=== PATIENT | female | born 1960 | race Caucasian/White ===

== ENCOUNTER 2016-12-26 11:41 | Emergency (ER) | payer MEDICARE ==
[~2016-12-26] VITALS: Ht 175.3 cm; Wt 76.5 kg
[~2016-12-26 11:41] MED LIST: AMLO10TA2 PO; AMLO10TA4 PO; AMLO5TAB2 PO; BACL-19 PO; BUPR100T6 PO; CEFT2FRO2 IV; CIPR250T27 PO; CIPR500T87 PO; CITA10TA4 PO; CYCL-259 PO; DOCU-30 PO; ESTR0.5T PO; GABA300C10 PO; GEMF600T3 PO; HYDR-3240 PO; HYDR-3307 PO; LISI-167 PO; LOSA25TA2 PO; LOSA25TA5 PO; POLY17PO5 PO; RANI150C PO; SEVE800T8 PO; SIMV20TA3 PO; SIMV40TA PO; VENL75CA6 PO
[2016-12-26] MEDS ORDERED: HYDROmorphone 1 MG/ML, 1ML IM ONE (13:30)
[2016-12-26] MEDS ORDERED: HYDROmorphone 1 MG/ML, 1ML IM PRN (14:30)
[2016-12-26] MEDS ORDERED: HYDROmorphone 1 MG/ML, 1ML ONE (14:30)
[2016-12-26 14:38] VITALS: BP 120/57
== END 2016-12-26 14:56 | disposition home or self-care (01) ==
LOC: ED 12:50
DX: M46.1 Sacroiliitis, not elsewhere classified (principal); G89.29 Other chronic pain; M54.5 Low back pain; Z86.73 Personal history of transient ischemic attack (TIA), and cerebral infarction without residual deficits; Z87.891 Personal history of nicotine dependence
CPT/HCPCS: 72110; 72202; 72220; 96372; 99284; J1170

== ENCOUNTER 2017-07-08 18:24 | Emergency (ER) | payer MEDICARE, OTHER ==
[~2017-07-08] VITALS: Ht 175.3 cm; Wt 79.4 kg
[~2017-07-08 18:24] MED LIST changes: +DOCU-131 PO; -DOCU-30 PO
[2017-07-08] MEDS ORDERED: METOCLOPRAMIDE 5 MG/ML, 2ML IM ONE (19:00)
[2017-07-08] MEDS ORDERED: DIPHENHYDRAMINE 50 MG/ML, 1ML IM ONE (19:00)
[2017-07-08] MEDS ORDERED: DIPHENHYDRAMINE 50 MG/ML, 1ML ONE (19:37)
[2017-07-08] MEDS ORDERED: METOCLOPRAMIDE 5 MG/ML, 2ML ONE (19:37)
[2017-07-08 21:36] LABS: GLUCOSE, CSF 54 mg/dL (40-80); TOTAL PROTEIN,CSF 81 mg/dL (15-45)
[2017-07-08 21:45] LABS: BASOPHILS # (AUTO) 0.07 x10^3/uL (0-0.1); BASOPHILS % (AUTO) 1 % (0-1); EOSINOPHILS # (AUTO) 0.23 x10^3/uL (0-0.4); EOSINOPHILS % (AUTO) 3 % (1-7); LYMPHOCYTES # (AUTO) 0.87 x10^3/uL (1-3.4); LYMPHOCYTES % (AUTO) 12 % (22-44); MD NO; MEAN CORPUSCULAR HEMOGLOBIN 34.3 pg (27.0-34.8); MEAN CORPUSCULAR HGB CONC 33.8 g/dL (32.4-35.8); MEAN CORPUSCULAR VOLUME 101.4 fL (80-100); MEAN PLATELET VOLUME 7.6 fL (7.4-10.4); MONOCYTES # (AUTO) 0.94 x10^3/uL (0.2-0.8); MONOCYTES % (AUTO) 13 % (2-9); NEUTROPHILS # (AUTO) 4.92 x10^3/uL (1.8-6.8); NEUTROPHILS % (AUTO) 70 % (42-75); PLATELET COUNT 225 x10^3/uL (130-400); RED BLOOD COUNT 3.79 x10^6/uL (3.82-5.3); RED CELL DISTRIBUTION WIDTH 12.9 % (9.6-15.2)
[2017-07-08 21:53] LABS: ALBUMIN 3.2 g/dL (3.4-5.0); ANION GAP 9 mmol/L (5-15); CALCIUM 9.7 mg/dL (8.5-10.1); CHLORIDE 97 mmol/L (98-107); CREATININE 4.65 mg/dL (0.55-1.02)
[2017-07-08] MEDS ORDERED: BUTALBIT/ACETAMIN/CAFF/CODEINE CAPSULE ONE (22:12)
[2017-07-08 22:29] VITALS: BP 119/67
[2017-07-08] MEDS ORDERED: BUTALB/APAP/CAFFEINE 50MG/325MG/40MG PO ONE (22:30)
== END 2017-07-08 23:07 | disposition home or self-care (01) ==
LOC: ED 21:20
DX: G44.219 Episodic tension-type headache, not intractable (principal); E78.5 Hyperlipidemia, unspecified; E87.1 Hypo-osmolality and hyponatremia; E87.5 Hyperkalemia; J44.9 Chronic obstructive pulmonary disease, unspecified; I12.0 Hypertensive chronic kidney disease with stage 5 chronic kidney disease or end stage renal disease; N18.6 End stage renal disease; I50.9 Heart failure, unspecified; Z90.710 Acquired absence of both cervix and uterus; Z90.49 Acquired absence of other specified parts of digestive tract; Z99.2 Dependence on renal dialysis; Z98.890 Other specified postprocedural states
CPT/HCPCS: 36415; 62270; 70450; 80048; 82040; 82945; 84157; 85025; 87070; 87205; 89051; 96372; 99285; J1200; J2765

== ENCOUNTER 2017-08-11 10:24 | Emergency (ER) | payer MEDICARE, OTHER ==
[~2017-08-11] VITALS: Ht 172.7 cm; Wt 84.0 kg
[2017-08-11 10:34] VITALS: BP 151/88
== END 2017-08-11 12:23 | disposition home or self-care (01) ==
LOC: ED 12:21
DX: M25.462 Effusion, left knee (principal); S83.412A Sprain of medial collateral ligament of left knee, initial encounter; W18.30XA Fall on same level, unspecified, initial encounter; Y93.89 Activity, other specified; Y99.8 Other external cause status; Y92.89 Other specified places as the place of occurrence of the external cause
CPT/HCPCS: 29505; 99284

== ENCOUNTER 2017-11-07 12:20 | Emergency (ER) | payer MEDICARE, OTHER ==
[~2017-11-07] VITALS: Ht 175.3 cm; Wt 81.2 kg
[2017-11-07 12:22] VITALS: BP 122/78
[2017-11-07] MEDS ORDERED: DIAZEPAM 5 MG TABLET ONE (13:09)
[2017-11-07] MEDS ORDERED: HYDROmorphone 1 MG/ML, 1ML ONE (13:09)
[2017-11-07] MEDS ORDERED: ONDANSETRON ODT 4 MG ONE (13:09)
[2017-11-07] MEDS ORDERED: ONDANSETRON ODT 4 MG PO ONE (13:30)
[2017-11-07] MEDS ORDERED: DIAZEPAM 5 MG TABLET PO ONE (13:30)
[2017-11-07] MEDS ORDERED: HYDROmorphone 1 MG/ML, 1ML IM ONE (13:30)
== END 2017-11-07 14:30 | disposition home or self-care (01) ==
LOC: ED 14:15
DX: M54.5 Low back pain (principal); E78.5 Hyperlipidemia, unspecified; I12.0 Hypertensive chronic kidney disease with stage 5 chronic kidney disease or end stage renal disease; J44.9 Chronic obstructive pulmonary disease, unspecified; N18.6 End stage renal disease; Z99.2 Dependence on renal dialysis; Z90.49 Acquired absence of other specified parts of digestive tract; F32.9 Major depressive disorder, single episode, unspecified
CPT/HCPCS: 96372; 99283; J1170; Q0162

== ENCOUNTER → 2017-12-09 | Outpatient (CLI) | payer MEDICARE, OTHER | END | disposition home or self-care (01) | LOC: CFH 13:01 | PROVIDERS: ATTEND Anesthesiology | DX: M41.86 Other forms of scoliosis, lumbar region (principal); M51.36 Other intervertebral disc degeneration, lumbar region; M48.07 Spinal stenosis, lumbosacral region | CPT/HCPCS: 72131 ==

== ENCOUNTER → 2018-03-04 | Outpatient (CLI) | payer MEDICARE, OTHER ==
[~2018-03-04] MED LIST changes: -AMLO10TA2 PO; +AMLO10TA6 PO; -AMLO5TAB2 PO; +AMLO5TAB7 PO; -GEMF600T3 PO; +GEMF600T4 PO; -LOSA25TA5 PO; +LOSA25TA6 PO
== END | disposition home or self-care (01) ==
LOC: RAD 08:19
PROVIDERS: ATTEND Internal Medicine
DX: R11.14 Bilious vomiting (principal)
CPT/HCPCS: 74241

== ENCOUNTER 2018-05-10 10:08 | Emergency (ER) | payer MEDICARE, OTHER ==
[~2018-05-10] VITALS: Ht 175.3 cm; Wt 83.5 kg
[2018-05-10 10:54] LABS: MEAN CORPUSCULAR HEMOGLOBIN 29.7 pg (27.0-34.8); MEAN CORPUSCULAR HGB CONC 32.4 g/dL (32.4-35.8); MEAN CORPUSCULAR VOLUME 91.7 fL (80-100); MEAN PLATELET VOLUME 7.6 fL (7.4-10.4); PLATELET COUNT 166 x10^3/uL (130-400); RED BLOOD COUNT 4.19 x10^6/uL (3.82-5.3); RED CELL DISTRIBUTION WIDTH 15.6 % (9.6-15.2)
[2018-05-10 11:07] LABS: ALBUMIN 3.2 g/dL (3.4-5.0); ANION GAP 15 mmol/L (5-15); CALCIUM 9.8 mg/dL (8.5-10.1); CHLORIDE 96 mmol/L (98-107)
[2018-05-10 11:11] LABS: ALANINE AMINOTRANSFERASE 18 U/L (12-78); ALKALINE PHOSPHATASE 94 U/L (45-117); BILIRUBIN,TOTAL 0.5 mg/dL (0.2-1.0); TOTAL PROTEIN 6.9 g/dL (6.4-8.2)
[2018-05-10 11:34] LABS: BASOPHILS # (AUTO) 0.01 x10^3/uL (0-0.1); BASOPHILS % (AUTO) 0 % (0-1); EOSINOPHILS % (AUTO) 0 % (1-7); LYMPHOCYTES # (AUTO) 0.31 x10^3/uL (1-3.4); LYMPHOCYTES % (AUTO) 4 % (22-44); MD SCAN; MONOCYTES # (AUTO) 0.06 x10^3/uL (0.2-0.8); MONOCYTES % (AUTO) 1 % (2-9); NEUTROPHILS # (AUTO) 8.16 x10^3/uL (1.8-6.8); NEUTROPHILS % (AUTO) 96 % (42-75)
[2018-05-10 12:05] VITALS: BP 112/60
== END 2018-05-10 12:19 | disposition home or self-care (01) ==
LOC: ED 11:36
DX: R60.0 Localized edema (principal); I12.0 Hypertensive chronic kidney disease with stage 5 chronic kidney disease or end stage renal disease; N18.6 End stage renal disease; Z99.2 Dependence on renal dialysis; I50.9 Heart failure, unspecified; J44.9 Chronic obstructive pulmonary disease, unspecified; F32.9 Major depressive disorder, single episode, unspecified; Z90.49 Acquired absence of other specified parts of digestive tract; E78.5 Hyperlipidemia, unspecified; Z86.73 Personal history of transient ischemic attack (TIA), and cerebral infarction without residual deficits; Z90.710 Acquired absence of both cervix and uterus
CPT/HCPCS: 36415; 80053; 85025; 93005; 99284

== ENCOUNTER 2018-05-17 17:03 | Emergency (ER) | payer MEDICARE, OTHER ==
[~2018-05-17] VITALS: Ht 175.3 cm; Wt 86.3 kg
[~2018-05-17 17:03] MED LIST changes: -TIZA4TAB PO; -VIT1TABL59 PO
[2018-05-17] MEDS ORDERED: VIT1TABL59 PO (17:38)
[2018-05-17] MEDS ORDERED: TIZA4TAB PO (17:38)
[2018-05-17 18:00] LABS: MEAN CORPUSCULAR HEMOGLOBIN 30.7 pg (27.0-34.8); MEAN CORPUSCULAR HGB CONC 33.6 g/dL (32.4-35.8); MEAN CORPUSCULAR VOLUME 91.3 fL (80-100); MEAN PLATELET VOLUME 8.1 fL (7.4-10.4); PLATELET COUNT 190 x10^3/uL (130-400); RED BLOOD COUNT 4.08 x10^6/uL (3.82-5.3); RED CELL DISTRIBUTION WIDTH 15.5 % (9.6-15.2)
[2018-05-17 18:01] LABS: MD YES
[2018-05-17 18:07] LABS: ANION GAP 18 mmol/L (5-15); CALCIUM 8.7 mg/dL (8.5-10.1); CHLORIDE 91 mmol/L (98-107)
[2018-05-17] MEDS ORDERED: HYDROcodone/APAP 10/325 MG TABLET ONE (18:16)
[2018-05-17 18:24] LABS: BAND#(MANUAL) 0.28 x10^3/uL; BANDS%(MANUAL) 3 % (0-7); LYMPH#(MANUAL) 0.19 x10^3/uL (1-3.4); LYMPHS% (MANUAL) 2 % (22-44); MONOS#(MANUAL) 0.09 x10^3/uL (0.3-2.7); MONOS% (MANUAL) 1 % (2-9); SEG#(MANUAL) 8.84 x10^3/uL (1.8-6.8); SEGS% (MANUAL) 94 % (42-75)
[2018-05-17 18:25] LABS: <PLATELET ESTIMATE> ADEQUATE; <PLT MORPHOLOGY> NORMAL PLT MORPH; <RBC MORPHOLOGY> NORMAL
[2018-05-17] MEDS ORDERED: HYDROcodone/APAP 10/325 MG TABLET PO ONE ×2 (18:30)
[2018-05-17 20:08] VITALS: BP 126/78
== END 2018-05-17 20:22 | disposition home or self-care (01) ==
LOC: ED 18:38
DX: I82.621 Acute embolism and thrombosis of deep veins of right upper extremity (principal); J44.9 Chronic obstructive pulmonary disease, unspecified; I13.2 Hypertensive heart and chronic kidney disease with heart failure and with stage 5 chronic kidney disease, or end stage renal disease; N18.6 End stage renal disease; I50.9 Heart failure, unspecified; Z99.2 Dependence on renal dialysis; Z87.891 Personal history of nicotine dependence; Z88.5 Allergy status to narcotic agent
CPT/HCPCS: 36415; 80048; 82040; 85025; 99284

== ENCOUNTER → 2018-05-17 | Outpatient (CLI) | payer MEDICARE, OTHER ==
[~2018-05-17] MED LIST changes: +TIZA4TAB PO; +VIT1TABL59 PO
== END | disposition home or self-care (01) ==
LOC: LAB 16:10
PROVIDERS: ATTEND Internal Medicine Nephrology
DX: I12.0 Hypertensive chronic kidney disease with stage 5 chronic kidney disease or end stage renal disease (principal); N18.6 End stage renal disease
CPT/HCPCS: 36415; 84132

== ENCOUNTER 2018-05-25 05:55 | Day surgery (SDC) | payer MEDICARE, OTHER ==
[~2018-05-25] VITALS: Ht 175.3 cm; Wt 80.0 kg
[~2018-05-25 05:55] MED LIST changes: +AMLO-150 PO; -AMLO5TAB7 PO; +TIZA4TAB PO; +VIT1TABL59 PO
[2018-05-25] MEDS ORDERED: PROTAMINE SULFATE 10 MG/ML, 5ML ONE (06:41)
[2018-05-25] MEDS ORDERED: HEPARIN 1,000 UNITS/ML, 10ML ONE (06:41)
[2018-05-25] MEDS ORDERED: BUPIVACAINE/PF 0.5% ONE (06:41)
[2018-05-25] MEDS ORDERED: THROMBIN 5,000 UNIT VIAL TP ONE (06:41)
[2018-05-25 06:44] VITALS: BP 101/62
[2018-05-25] MEDS ORDERED: SODIUM CHLORIDE 0.9% 1,000 ML IV SCH (06:44)
[2018-05-25] MEDS ORDERED: LIDOCAINE-MPF 1%, 2ML INFIL ONE (07:00)
[2018-05-25] MEDS ORDERED: FURO80TA3 PO (07:12)
[2018-05-25] MEDS ORDERED: LORA10TA3 PO (07:12)
[2018-05-25] MEDS ORDERED: PRED50TA PO (07:12)
[2018-05-25] MEDS ORDERED: LANT1000 PO (07:12)
[2018-05-25] MEDS ORDERED: HYDR-3622 PO (07:12)
[2018-05-25] MEDS ORDERED: CELE200C PO (07:12)
[2018-05-25] MEDS ORDERED: DEXAMETHASONE 4 MG/ML, 1ML ONE ×2 (07:23→08:45)
[2018-05-25] MEDS ORDERED: FENTANYL PF 100 MCG/2ML ONE ×3 (07:23→10:08)
[2018-05-25] MEDS ORDERED: MIDAZOLAM 1 MG/ML, 2ML ONE (07:23)
[2018-05-25] MEDS ORDERED: SCOPOLAMINE PATCH, 1.5MG PATCH.TD72 TD ONE (07:30)
[2018-05-25] MEDS ORDERED: ACETAMINOPHEN 500 MG TABLET PO ONE (07:30)
[2018-05-25] MEDS ORDERED: ONDANSETRON ODT 8 MG PO ONE (07:30)
[2018-05-25] MEDS ORDERED: CEFAZOLIN 1,000 MG ONE (07:32)
[2018-05-25] MEDS ORDERED: EPHEDRINE 50 MG/ML, 1ML ONE (07:32)
[2018-05-25] MEDS ORDERED: ONDANSETRON 2MG/ML, 2ML IV PRN (08:00)
[2018-05-25] MEDS ORDERED: HYDROmorphone 2 MG/ML, 1ML IVPush PRN (08:00)
[2018-05-25] MEDS ORDERED: ALBUTEROL SULFATE 2.5 MG/3 ML NPPB PRN (08:00)
[2018-05-25] MEDS ORDERED: PROMETHAZINE 25 MG/ML, 1ML IV PRN (08:00)
[2018-05-25] MEDS ORDERED: LABETALOL 5MG/ML, 20ML IV PRN (08:00)
[2018-05-25] MEDS ORDERED: DIAZEPAM 5 MG/ML, 2ML IVPush PRN (08:00)
[2018-05-25] MEDS ORDERED: MIDAZOLAM 1 MG/ML, 2ML IV PRN (08:00)
[2018-05-25] MEDS ORDERED: ONDANSETRON ODT 8 MG PO PRN (08:00)
[2018-05-25] MEDS ORDERED: hydrALAzine 20 MG/ML, 1ML IV PRN (08:00)
[2018-05-25] MEDS ORDERED: MEPERIDINE/PF 25MG/0.5ML IVPush PRN (08:00)
[2018-05-25] MEDS ORDERED: PROMETHAZINE 12.5 MG SUPP PR PRN (08:00)
[2018-05-25] MEDS ORDERED: EPHEDRINE 50 MG/ML, 1ML IVPush PRN (08:00)
[2018-05-25] MEDS ORDERED: HALOPERIDOL 5 MG/ML IV PRN (08:00)
[2018-05-25] MEDS ORDERED: PROPOFOL 10 MG/ML, 20ML ONE ×2 (08:45→08:48)
[2018-05-25] MEDS ORDERED: ONDANSETRON 2MG/ML, 2ML ONE (08:45)
[2018-05-25] MEDS ORDERED: OXYcodone 5 MG/5 ML ORAL.SOL UDC ONE ×2 (09:33→09:59)
[2018-05-25] MEDS: OXYcodone 5 MG/5 ML ORAL.SOL UDC PO PRN ×2 (09:34→10:00)
[2018-05-25] MEDS: FENTANYL PF 100 MCG/2ML IV PRN ×3 (09:37→10:10)
== END 2018-05-25 11:40 | disposition home or self-care (01) ==
LOC: OUT 05:55
PROVIDERS: ATTEND Surgery Vascular Surgery
DX: T82.868A Thrombosis due to vascular prosthetic devices, implants and grafts, initial encounter (principal); I12.0 Hypertensive chronic kidney disease with stage 5 chronic kidney disease or end stage renal disease; N18.6 End stage renal disease; E78.5 Hyperlipidemia, unspecified; K21.9 Gastro-esophageal reflux disease without esophagitis; J44.9 Chronic obstructive pulmonary disease, unspecified; Y83.8 Other surgical procedures as the cause of abnormal reaction of the patient, or of later complication, without mention of misadventure at the time of the procedure; Y92.89 Other specified places as the place of occurrence of the external cause; Z88.8 Allergy status to other drugs, medicaments and biological substances; Z91.040 Latex allergy status
CPT/HCPCS: 36415; 36832; 80047; C1757; C1768; J0690; J1100; J1644; J2250; J2405; J2704; J2720; J3010; J7030; Q0162; J3490

== ENCOUNTER 2018-05-30 11:09 | Emergency (ER) | payer MEDICARE, OTHER ==
[~2018-05-30] VITALS: Ht 175.3 cm; Wt 81.7 kg
[~2018-05-30 11:09] MED LIST changes: +CELE200C PO; +FURO80TA3 PO; +HYDR-3622 PO; +LANT1000 PO; +LORA10TA3 PO; +PRED50TA PO
[2018-05-30] MEDS ORDERED: LANT1000 PO (14:47)
[2018-05-30] MEDS ORDERED: THROMBIN 5,000 UNIT VIAL TP ONE (15:30)
[2018-05-30 16:25] VITALS: BP 111/62
== END 2018-05-30 16:29 | disposition home or self-care (01) ==
LOC: ED 12:20
DX: I72.1 Aneurysm of artery of upper extremity (principal); I13.2 Hypertensive heart and chronic kidney disease with heart failure and with stage 5 chronic kidney disease, or end stage renal disease; I11.0 Hypertensive heart disease with heart failure; I50.9 Heart failure, unspecified; E78.5 Hyperlipidemia, unspecified; F32.9 Major depressive disorder, single episode, unspecified; J44.9 Chronic obstructive pulmonary disease, unspecified; F17.200 Nicotine dependence, unspecified, uncomplicated; Z90.49 Acquired absence of other specified parts of digestive tract; Z90.710 Acquired absence of both cervix and uterus; Z86.73 Personal history of transient ischemic attack (TIA), and cerebral infarction without residual deficits; N18.6 End stage renal disease; Z99.2 Dependence on renal dialysis
CPT/HCPCS: 99284

== ENCOUNTER 2018-06-01 10:48 | Emergency (ER) | payer MEDICARE, OTHER ==
[~2018-06-01] VITALS: Ht 175.3 cm; Wt 80.9 kg
[2018-06-01] MEDS ORDERED: ALBUTEROL/IPRATROPIUM 2.5MG/0.5MG, 3 ML NPPB ONE (11:30)
[2018-06-01] MEDS ORDERED: ALBUTEROL/IPRATROPIUM 2.5MG/0.5MG, 3 ML ONE (11:36)
[2018-06-01 11:48] LABS: BASOPHILS # (AUTO) 0.01 x10^3/uL (0-0.1); BASOPHILS % (AUTO) 0 % (0-1); EOSINOPHILS # (AUTO) 0.11 x10^3/uL (0-0.4); EOSINOPHILS % (AUTO) 1 % (1-7); LYMPHOCYTES # (AUTO) 0.73 x10^3/uL (1-3.4); LYMPHOCYTES % (AUTO) 7 % (22-44); MD NO; MEAN CORPUSCULAR HEMOGLOBIN 30.8 pg (27.0-34.8); MEAN CORPUSCULAR HGB CONC 32.8 g/dL (32.4-35.8); MEAN CORPUSCULAR VOLUME 93.9 fL (80-100); MEAN PLATELET VOLUME 7.7 fL (7.4-10.4); MONOCYTES # (AUTO) 0.53 x10^3/uL (0.2-0.8); MONOCYTES % (AUTO) 5 % (2-9); NEUTROPHILS # (AUTO) 8.57 x10^3/uL (1.8-6.8); NEUTROPHILS % (AUTO) 86 % (42-75); PLATELET COUNT 137 x10^3/uL (130-400); RED BLOOD COUNT 4.33 x10^6/uL (3.82-5.3); RED CELL DISTRIBUTION WIDTH 16.2 % (9.6-15.2)
[2018-06-01 11:54] LABS: ALBUMIN 3.2 g/dL (3.4-5.0); ANION GAP 15 mmol/L (5-15); CALCIUM 8.6 mg/dL (8.5-10.1); CHLORIDE 97 mmol/L (98-107); CREATININE 7.58 mg/dL (0.55-1.02)
[2018-06-01 11:58] LABS: TROPONIN I < 0.015 ng/mL (0.000-0.045)
[2018-06-01 14:35] VITALS: BP 96/49
== END 2018-06-01 15:24 | disposition home or self-care (01) ==
LOC: ED 11:37
DX: R06.02 Shortness of breath (principal); R06.2 Wheezing
CPT/HCPCS: 36415; 71045; 78582; 80048; 82040; 83880; 84145; 84484; 85025; 93005; 94640; 99284; A9540; A9558; C9898; J7620

== ENCOUNTER 2018-06-23 06:07 | Emergency (ER) | payer MEDICARE, OTHER ==
[~2018-06-23] VITALS: Ht 177.8 cm; Wt 83.9 kg
[~2018-06-23 06:07] MED LIST changes: +LOSA25TA25 PO; -LOSA25TA6 PO
--- NOTE | 2018-06-23 06:38 | NUR ---
CAITLIN SUN AT BEDSIDE EVALUATING PT.
--- NOTE | 2018-06-23 07:00 | NUR ---
PT C/O RIGHT GRAFT SITE SWELLING X 2 WEEKS. PT DID SEE SURGEON AFTER SWELLING STARTED.
--- NOTE | 2018-06-23 07:05 | NUR ---
REPORT TO BENEDICTO SHORE
--- NOTE | 2018-06-23 07:20 | NUR ---
LAB WORK DRAWN BY [facility]. PT IS ALERT AND ORIENTED AND FRIEND IS AT [facility]. CALL LIGHT IS WITHIN REACH.
[2018-06-23 07:25] LABS: MEAN CORPUSCULAR HEMOGLOBIN 29.5 pg (27.0-34.8); MEAN CORPUSCULAR HGB CONC 32.3 g/dL (32.4-35.8); MEAN CORPUSCULAR VOLUME 91.3 fL (80-100); MEAN PLATELET VOLUME 7.7 fL (7.4-10.4); PLATELET COUNT 143 x10^3/uL (130-400); RED BLOOD COUNT 3.74 x10^6/uL (3.82-5.3); RED CELL DISTRIBUTION WIDTH 16.1 % (9.6-15.2)
[2018-06-23 07:40] LABS: ALANINE AMINOTRANSFERASE 11 U/L (12-78); ALBUMIN 2.8 g/dL (3.4-5.0); ANION GAP 13 mmol/L (5-15); CALCIUM 7.8 mg/dL (8.5-10.1); CHLORIDE 93 mmol/L (98-107)
[2018-06-23 07:42] LABS: ALKALINE PHOSPHATASE 134 U/L (45-117); BILIRUBIN,TOTAL 0.5 mg/dL (0.2-1.0); TOTAL PROTEIN 6.4 g/dL (6.4-8.2)
[2018-06-23 08:04] LABS: BASOPHILS % (AUTO) 0 % (0-1); EOSINOPHILS # (AUTO) 0.02 x10^3/uL (0-0.4); EOSINOPHILS % (AUTO) 0 % (1-7); LYMPHOCYTES # (AUTO) 0.27 x10^3/uL (1-3.4); LYMPHOCYTES % (AUTO) 2 % (22-44); MD SCAN; MONOCYTES # (AUTO) 0.31 x10^3/uL (0.2-0.8); MONOCYTES % (AUTO) 2 % (2-9); NEUTROPHILS # (AUTO) 13.78 x10^3/uL (1.8-6.8); NEUTROPHILS % (AUTO) 96 % (42-75)
--- NOTE | 2018-06-23 08:28 | NUR ---
paged dr burgos for dr hagan.
--- NOTE | 2018-06-23 08:34 | NUR ---
dr coronado returned call and spoke with dann anders
[2018-06-23 09:05] VITALS: BP 111/64
--- NOTE | 2018-06-23 09:06 | NUR ---
PT C/O RIGHT THUMB CAT BITE X 2 DAYS AGO. SITE IS REDDENED AND PAINFUL. Addendum: 06/23/18 at [address] THOMPSON OF CAT BITE.
== END 2018-06-23 09:15 | disposition home or self-care (01) ==
LOC: ED 07:55
DX: M25.521 Pain in right elbow (principal); I13.2 Hypertensive heart and chronic kidney disease with heart failure and with stage 5 chronic kidney disease, or end stage renal disease; N18.6 End stage renal disease; I50.9 Heart failure, unspecified; J44.9 Chronic obstructive pulmonary disease, unspecified; F32.9 Major depressive disorder, single episode, unspecified; E78.5 Hyperlipidemia, unspecified; Z99.2 Dependence on renal dialysis; Z86.718 Personal history of other venous thrombosis and embolism; Z86.73 Personal history of transient ischemic attack (TIA), and cerebral infarction without residual deficits
CPT/HCPCS: 36415; 80053; 85025; 99284

== ENCOUNTER 2018-06-23 13:23 | Inpatient (IN) | payer MEDICARE, OTHER ==
[~2018-06-23] VITALS: Ht 175.3 cm; Wt 80.5 kg
[~2018-06-23 13:23] MED LIST changes: +LORA-247 PO; -LORA10TA3 PO
[2018-06-23] MEDS ORDERED: SODIUM CHLORIDE 0.9% 500 ML IV STA (13:31)
--- NOTE | 2018-06-23 13:39 | NUR ---
patient BIB [facility] from home for a MGLF r/t dizzy spell. Patient hypotensive en route, initial BP in ER is 76/37, patient has peripheral pulses, is PWD, and exhibits normal mentation. MD Hill at bedside, he has verbally ordered a 500 mL NS bolus, patient received 500 mL NS from EMS en route. call light in reach, friend accompanying.
[2018-06-23] MEDS ORDERED: SODIUM CHLORIDE 0.9% 500 ML IV ONE (14:00)
[2018-06-23 14:26] LABS: MEAN CORPUSCULAR HEMOGLOBIN 29.6 pg (27.0-34.8); MEAN CORPUSCULAR HGB CONC 32.3 g/dL (32.4-35.8); MEAN CORPUSCULAR VOLUME 91.8 fL (80-100); MEAN PLATELET VOLUME 7.9 fL (7.4-10.4); PLATELET COUNT 138 x10^3/uL (130-400); RED BLOOD COUNT 3.24 x10^6/uL (3.82-5.3); RED CELL DISTRIBUTION WIDTH 15.9 % (9.6-15.2)
[2018-06-23 14:34] LABS: ALANINE AMINOTRANSFERASE 10 U/L (12-78); ALBUMIN 2.5 g/dL (3.4-5.0); ANION GAP 12 mmol/L (5-15); CALCIUM 6.8 mg/dL (8.5-10.1); CHLORIDE 97 mmol/L (98-107)
[2018-06-23 14:36] LABS: ALKALINE PHOSPHATASE 110 U/L (45-117); BILIRUBIN,TOTAL 0.5 mg/dL (0.2-1.0); TOTAL PROTEIN 5.9 g/dL (6.4-8.2)
[2018-06-23 14:41] LABS: BASOPHILS # (AUTO) 0.03 x10^3/uL (0-0.1); BASOPHILS % (AUTO) 0 % (0-1); EOSINOPHILS # (AUTO) 0.03 x10^3/uL (0-0.4); EOSINOPHILS % (AUTO) 0 % (1-7); LYMPHOCYTES % (AUTO) 3 % (22-44); MD MORPH REVIEW ONLY; MONOCYTES # (AUTO) 0.64 x10^3/uL (0.2-0.8); MONOCYTES % (AUTO) 5 % (2-9); NEUTROPHILS # (AUTO) 13.04 x10^3/uL (1.8-6.8); NEUTROPHILS % (AUTO) 92 % (42-75)
[2018-06-23 14:43] LABS: ANISOCYTOSIS 1+; HYPOCHROMIA 1+; POLYCHROMASIA 1+
[2018-06-23 14:44] LABS: <PLATELET ESTIMATE> ADEQUATE; <PLT MORPHOLOGY> NORMAL PLT MORPH
--- NOTE | 2018-06-23 14:44 | NUR ---
patient remains safe in bed, friend accompanying in the room, BP improved to 84/52, patient reports 5/10 pain upon deep inspiration, lung sounds remain clear, MD updated of pain, call light in reach, no other acute changes noted.
[2018-06-23] MEDS ORDERED: AMPICILLIN/SULBACTAM 3 GM in SODIUM CHLORIDE 0.9% 100 ML IV ONE (15:30)
--- NOTE | 2018-06-23 16:08 | NUR ---
PATIENT RESTING IN BED, MAP OF 65, has ambulated to in-room restroom to attempt to provide urine, no urine, MD updated, awaiting bed assignment for admission.
--- NOTE | 2018-06-23 16:32 | NUR ---
paged dr davalos for dr lacy.
[2018-06-23] MEDS ORDERED: SODIUM CHLORIDE 0.9% 1,000 ML IV SCH ×2 (16:33→17:00)
[2018-06-23] MEDS ORDERED: VANCOMYCIN PMX 1GM/200ML 200 ML IV ONE (17:00)
[2018-06-23] MEDS ORDERED: ACETAMINOPHEN 325 MG TABLET PO PRN (17:00)
[2018-06-23 17:07] LABS: FREE T4 (FREE THYROXINE) 0.51 ng/dL (0.76-1.46); TROPONIN I < 0.015 ng/mL (0.000-0.045)
[2018-06-23 17:38] VITALS: BP 101/66
[2018-06-23] MEDS: PIPERACILLIN/TAZO/PMX 4.5GM 100 ML IV SCH (17:55)
[2018-06-23] MEDS: HYDROcodone/APAP 10/325 MG TABLET PO PRN (17:55)
[2018-06-23] MEDS ORDERED: VANCOMYCIN PER PHARMACY MC PRN (18:00)
[2018-06-23 18:26] LABS: INTERNATIONAL NORMALIZED RATIO 1.17 (0.93-1.1); PROTHROMBIN TIME 12.3 Seconds (9.6-11.5)
[2018-06-23] MEDS ORDERED: ASPIRIN 81 MG TABLET CHEW PO ONE (18:30)
[2018-06-23 19:11] VITALS: BP 108/69
[2018-06-23] MEDS ORDERED: VANCOMYCIN 1,600 MG in SODIUM CHLORIDE 0.9% 250 ML IV ONE (20:00)
[2018-06-23] MEDS ORDERED: PHARMACOKINETIC MONITORING MC PRN (20:00)
[2018-06-23 20:36] LABS: TROPONIN I < 0.015 ng/mL (0.000-0.045)
[2018-06-23] MEDS: BUPROPION 100 MG TABLET PO SCH (21:41)
[2018-06-23] MEDS: SIMVASTATIN 20 MG TABLET PO SCH (21:42)
[2018-06-23] MEDS: TIZANIDINE 4MG TABLET PO SCH (21:42)
[2018-06-23] MEDS: FAMOTIDINE 20 MG TABLET PO SCH (21:42)
[2018-06-23] MEDS: GABAPENTIN 300 MG CAPSULE PO SCH (21:42)
[2018-06-23] MEDS: GEMFIBROZIL 600 MG TABLET PO SCH (21:42)
[2018-06-24 01:30] VITALS: BP 101/62
[2018-06-24] MEDS: PIPERACILLIN/TAZO/PMX 4.5GM 100 ML IV SCH ×2 (01:55→13:37)
[2018-06-24 05:58] LABS: BASOPHILS # (AUTO) 0.01 x10^3/uL (0-0.1); BASOPHILS % (AUTO) 0 % (0-1); EOSINOPHILS % (AUTO) 1 % (1-7); LYMPHOCYTES # (AUTO) 0.27 x10^3/uL (1-3.4); LYMPHOCYTES % (AUTO) 3 % (22-44); MD NO; MEAN CORPUSCULAR HGB CONC 33.9 g/dL (32.4-35.8); MEAN CORPUSCULAR VOLUME 91.5 fL (80-100); MEAN PLATELET VOLUME 8.3 fL (7.4-10.4); MONOCYTES # (AUTO) 0.39 x10^3/uL (0.2-0.8); MONOCYTES % (AUTO) 4 % (2-9); NEUTROPHILS # (AUTO) 9.54 x10^3/uL (1.8-6.8); NEUTROPHILS % (AUTO) 93 % (42-75); PLATELET COUNT 120 x10^3/uL (130-400); RED BLOOD COUNT 3.33 x10^6/uL (3.82-5.3); RED CELL DISTRIBUTION WIDTH 16.7 % (9.6-15.2)
[2018-06-24 06:12] LABS: CHLORIDE 96 mmol/L (98-107)
[2018-06-24 06:38] LABS: ALANINE AMINOTRANSFERASE 9 U/L (12-78); ALBUMIN 2.3 g/dL (3.4-5.0); ALKALINE PHOSPHATASE 108 U/L (45-117); ANION GAP 17 mmol/L (5-15); BILIRUBIN,TOTAL 0.9 mg/dL (0.2-1.0); CALCIUM 7.5 mg/dL (8.5-10.1); TOTAL PROTEIN 5.7 g/dL (6.4-8.2)
[2018-06-24 07:21] VITALS: BP 105/66
[2018-06-24] MEDS ORDERED: DARBEPOETIN 60 MCG/ML SQ SCH (09:00)
[2018-06-24] MEDS: HYDROcodone/APAP 10/325 MG TABLET PO PRN ×2 (09:21→20:10)
[2018-06-24] MEDS ORDERED: PHENYLEPHRINE 10 MG/ML ONE (10:00)
[2018-06-24] MEDS: BUPROPION 100 MG TABLET PO SCH ×2 (13:36→20:10)
[2018-06-24] MEDS: MULTIVITS,STRESS FORMULA 1 TABLET PO SCH (13:36)
[2018-06-24] MEDS: GEMFIBROZIL 600 MG TABLET PO SCH ×2 (13:36→20:10)
[2018-06-24] MEDS: CITALOPRAM 10 MG TABLET PO SCH (13:37)
[2018-06-24] MEDS: TIZANIDINE 4MG TABLET PO SCH ×3 (13:37→20:09)
[2018-06-24 14:03] VITALS: BP 110/69
[2018-06-24] MEDS ORDERED: BUPIVACAINE/PF-EPI 0.5% 1:200K ONE (16:07)
[2018-06-24] MEDS ORDERED: MIDAZOLAM 1 MG/ML, 2ML ONE (16:23)
[2018-06-24] MEDS ORDERED: FENTANYL PF 100 MCG/2ML ONE (16:23)
[2018-06-24] MEDS ORDERED: LIDOCAINE-MPF 2% ,5ML ONE (16:48)
[2018-06-24] MEDS ORDERED: ONDANSETRON 2MG/ML, 2ML ONE (16:57)
[2018-06-24] MEDS ORDERED: CEFAZOLIN 1,000 MG ONE (16:57)
[2018-06-24] MEDS ORDERED: PROPOFOL 10 MG/ML, 20ML ONE (16:57)
[2018-06-24] MEDS ORDERED: DEXAMETHASONE 4 MG/ML, 1ML ONE (16:57)
[2018-06-24] MEDS ORDERED: ONDANSETRON 2MG/ML, 2ML IV PRN (17:00)
[2018-06-24] MEDS ORDERED: VANCOMYCIN PMX 1GM/200ML 200 ML IVPB ONE (17:00)
[2018-06-24] MEDS ORDERED: hydrALAzine 20 MG/ML, 1ML IV PRN (17:00)
[2018-06-24] MEDS ORDERED: MIDAZOLAM 1 MG/ML, 2ML IV PRN (17:00)
[2018-06-24] MEDS ORDERED: OXYcodone 5 MG/5 ML ORAL.SOL UDC PO PRN (17:00)
[2018-06-24] MEDS ORDERED: ACETAMINOPHEN 325 MG TABLET PO PRN (17:00)
[2018-06-24] MEDS ORDERED: FENTANYL PF 100 MCG/2ML IV PRN (17:00)
[2018-06-24] MEDS ORDERED: ALBUTEROL/IPRATROPIUM 2.5MG/0.5MG, 3 ML NPPB PRN (17:00)
[2018-06-24] MEDS ORDERED: PROMETHAZINE 25 MG/ML, 1ML IV PRN (17:00)
[2018-06-24 19:30] VITALS: BP 103/63
[2018-06-24] MEDS ORDERED: PIPERACILLIN/TAZO/PMX 4.5GM 100 ML IV SCH (20:00)
[2018-06-24] MEDS: GABAPENTIN 300 MG CAPSULE PO SCH (20:09)
[2018-06-24] MEDS: SIMVASTATIN 20 MG TABLET PO SCH (20:09)
[2018-06-24] MEDS: FAMOTIDINE 20 MG TABLET PO SCH (20:10)
[2018-06-25 00:23] VITALS: BP 102/64
[2018-06-25] MEDS: HYDROcodone/APAP 10/325 MG TABLET PO PRN ×3 (05:13→21:38)
[2018-06-25] MEDS: PIPERACILLIN/TAZO 2.25 GM in NS 50 ML IV SCH ×2 (05:21→12:38)
[2018-06-25 05:41] LABS: BASOPHILS % (AUTO) 0 % (0-1); EOSINOPHILS % (AUTO) 0 % (1-7); LYMPHOCYTES # (AUTO) 0.34 x10^3/uL (1-3.4); LYMPHOCYTES % (AUTO) 4 % (22-44); MD NO; MEAN CORPUSCULAR HEMOGLOBIN 29.8 pg (27.0-34.8); MEAN CORPUSCULAR HGB CONC 32.7 g/dL (32.4-35.8); MEAN CORPUSCULAR VOLUME 91.1 fL (80-100); MEAN PLATELET VOLUME 8.7 fL (7.4-10.4); MONOCYTES # (AUTO) 0.51 x10^3/uL (0.2-0.8); MONOCYTES % (AUTO) 6 % (2-9); NEUTROPHILS # (AUTO) 7.18 x10^3/uL (1.8-6.8); NEUTROPHILS % (AUTO) 89 % (42-75); PLATELET COUNT 146 x10^3/uL (130-400); RED BLOOD COUNT 3.44 x10^6/uL (3.82-5.3); RED CELL DISTRIBUTION WIDTH 16.8 % (9.6-15.2)
[2018-06-25 05:46] LABS: ALANINE AMINOTRANSFERASE 10 U/L (12-78); ALBUMIN 2.3 g/dL (3.4-5.0); ANION GAP 6 mmol/L (5-15); CHLORIDE 99 mmol/L (98-107); CREATININE 7.48 mg/dL (0.55-1.02)
[2018-06-25 05:48] LABS: ALKALINE PHOSPHATASE 101 U/L (45-117); BILIRUBIN,TOTAL 0.5 mg/dL (0.2-1.0); TOTAL PROTEIN 6.2 g/dL (6.4-8.2)
[2018-06-25 08:16] VITALS: BP 106/68
[2018-06-25] MEDS: TIZANIDINE 4MG TABLET PO SCH ×3 (08:44→21:38)
[2018-06-25] MEDS: CITALOPRAM 10 MG TABLET PO SCH (08:45)
[2018-06-25] MEDS: BUPROPION 100 MG TABLET PO SCH ×2 (08:45→21:37)
[2018-06-25] MEDS: GEMFIBROZIL 600 MG TABLET PO SCH ×2 (08:45→21:38)
[2018-06-25] MEDS: MULTIVITS,STRESS FORMULA 1 TABLET PO SCH (08:45)
[2018-06-25] MEDS ORDERED: ERGOCALCIFEROL 50,000 UNIT CAPSULE PO SCH (09:00)
[2018-06-25 10:14] LABS: CLOSTRIDIUM DIFFICILE ANTIGEN NEGATIVE; CLOSTRIDIUM DIFFICILE TOXIN NEGATIVE (Negative)
[2018-06-25 14:03] VITALS: BP 110/72
[2018-06-25] MEDS ORDERED: AMPICILLIN/SULBACTAM 3 GM in SODIUM CHLORIDE 0.9% 100 ML IV SCH (16:00)
[2018-06-25 18:57] VITALS: BP 105/61
[2018-06-25] MEDS ORDERED: PIPERACILLIN/TAZO 2.25 GM in DEXTROSE 5% 50 ML IV SCH (20:00)
[2018-06-25] MEDS: FAMOTIDINE 20 MG TABLET PO SCH (21:38)
[2018-06-25] MEDS: GABAPENTIN 300 MG CAPSULE PO SCH (21:38)
[2018-06-25] MEDS: SIMVASTATIN 20 MG TABLET PO SCH (21:38)
[2018-06-26 00:40] VITALS: BP 113/74
[2018-06-26] MEDS: HYDROcodone/APAP 10/325 MG TABLET PO PRN ×3 (03:48→19:24)
[2018-06-26] MEDS: AMPICILLIN/SULBACTAM 3 GM in SODIUM CHLORIDE 0.9% 100 ML IV SCH ×2 (05:19→16:50)
[2018-06-26 05:47] LABS: BASOPHILS # (AUTO) 0.02 x10^3/uL (0-0.1); BASOPHILS % (AUTO) 0 % (0-1); EOSINOPHILS # (AUTO) 0.08 x10^3/uL (0-0.4); EOSINOPHILS % (AUTO) 1 % (1-7); LYMPHOCYTES # (AUTO) 0.92 x10^3/uL (1-3.4); LYMPHOCYTES % (AUTO) 13 % (22-44); MD NO; MEAN CORPUSCULAR HEMOGLOBIN 29.6 pg (27.0-34.8); MEAN CORPUSCULAR HGB CONC 32.6 g/dL (32.4-35.8); MEAN CORPUSCULAR VOLUME 90.8 fL (80-100); MEAN PLATELET VOLUME 7.9 fL (7.4-10.4); MONOCYTES # (AUTO) 0.83 x10^3/uL (0.2-0.8); MONOCYTES % (AUTO) 12 % (2-9); NEUTROPHILS # (AUTO) 5.18 x10^3/uL (1.8-6.8); NEUTROPHILS % (AUTO) 74 % (42-75); PLATELET COUNT 168 x10^3/uL (130-400); RED BLOOD COUNT 3.69 x10^6/uL (3.82-5.3); RED CELL DISTRIBUTION WIDTH 16.8 % (9.6-15.2)
[2018-06-26 05:53] LABS: ALANINE AMINOTRANSFERASE 10 U/L (12-78); ALBUMIN 2.2 g/dL (3.4-5.0); ANION GAP 10 mmol/L (5-15); CALCIUM 8.4 mg/dL (8.5-10.1); CHLORIDE 100 mmol/L (98-107); CREATININE 5.54 mg/dL (0.55-1.02)
[2018-06-26 05:55] LABS: ALKALINE PHOSPHATASE 97 U/L (45-117); BILIRUBIN,TOTAL 0.4 mg/dL (0.2-1.0); VANCOMYCIN,RANDOM 22.9 mcg/mL
[2018-06-26 07:00] VITALS: BP 132/82
[2018-06-26] MEDS: GEMFIBROZIL 600 MG TABLET PO SCH ×2 (09:08→21:19)
[2018-06-26] MEDS: BUPROPION 100 MG TABLET PO SCH ×2 (09:08→21:19)
[2018-06-26] MEDS: TIZANIDINE 4MG TABLET PO SCH ×3 (09:08→21:19)
[2018-06-26] MEDS: CITALOPRAM 10 MG TABLET PO SCH (09:08)
[2018-06-26] MEDS: MULTIVITS,STRESS FORMULA 1 TABLET PO SCH (09:08)
[2018-06-26] MEDS: ONDANSETRON 2MG/ML, 2ML IVPush PRN (09:09)
[2018-06-26 14:43] VITALS: BP 136/79
[2018-06-26 19:15] VITALS: BP 111/67
[2018-06-26] MEDS: FAMOTIDINE 20 MG TABLET PO SCH (21:19)
[2018-06-26] MEDS: GABAPENTIN 300 MG CAPSULE PO SCH (21:20)
[2018-06-26] MEDS: SIMVASTATIN 20 MG TABLET PO SCH (21:20)
[2018-06-26] MEDS: DIPHENHYDRAMINE 50 MG CAPSULE PO PRN (21:20)
[2018-06-27 01:43] VITALS: BP 114/70
[2018-06-27 06:00] LABS: HCT (SEDRATE) 32.9 % (34.6-47.8)
[2018-06-27] MEDS: HYDROcodone/APAP 10/325 MG TABLET PO PRN ×2 (06:04→16:17)
[2018-06-27 07:30] VITALS: BP 110/66
[2018-06-27] MEDS: CITALOPRAM 10 MG TABLET PO SCH (09:45)
[2018-06-27] MEDS: TIZANIDINE 4MG TABLET PO SCH ×3 (09:45→20:50)
[2018-06-27] MEDS: GEMFIBROZIL 600 MG TABLET PO SCH ×2 (09:45→20:50)
[2018-06-27] MEDS: MULTIVITS,STRESS FORMULA 1 TABLET PO SCH (09:45)
[2018-06-27] MEDS: BUPROPION 100 MG TABLET PO SCH ×2 (09:45→20:50)
[2018-06-27 12:12] VITALS: BP 107/63
[2018-06-27] MEDS: AMPICILLIN/SULBACTAM 3 GM in SODIUM CHLORIDE 0.9% 100 ML IV SCH (14:21)
[2018-06-27 19:13] LABS: CULTURE INDICATED? YES; MICROSCOPIC INDICATED
[2018-06-27 19:33] VITALS: BP 103/62
[2018-06-27] MEDS: GABAPENTIN 300 MG CAPSULE PO SCH (20:50)
[2018-06-27] MEDS: FAMOTIDINE 20 MG TABLET PO SCH (20:51)
[2018-06-27] MEDS: SIMVASTATIN 20 MG TABLET PO SCH (20:51)
[2018-06-27] MEDS: DIPHENHYDRAMINE 50 MG CAPSULE PO PRN (20:51)
[2018-06-28 01:12] VITALS: BP 97/58
[2018-06-28 06:39] VITALS: BP 130/74
[2018-06-28] MEDS: BUPROPION 100 MG TABLET PO SCH ×2 (08:38→20:11)
[2018-06-28] MEDS: CITALOPRAM 10 MG TABLET PO SCH (08:38)
[2018-06-28] MEDS: TIZANIDINE 4MG TABLET PO SCH ×3 (08:38→20:11)
[2018-06-28] MEDS: CALCITRIOL 0.25 MCG CAPSULE PO SCH (08:38)
[2018-06-28] MEDS: GEMFIBROZIL 600 MG TABLET PO SCH ×2 (08:38→20:11)
[2018-06-28] MEDS: MULTIVITS,STRESS FORMULA 1 TABLET PO SCH (08:38)
[2018-06-28] MEDS: HYDROcodone/APAP 10/325 MG TABLET PO PRN ×2 (08:42→20:11)
[2018-06-28] MEDS: AMPICILLIN/SULBACTAM 3 GM in SODIUM CHLORIDE 0.9% 100 ML IV SCH (13:28)
[2018-06-28 14:33] VITALS: BP_SYST 117; BP_SYST 99; BP_DIAS 61; BP_DIAS 70
[2018-06-28] MEDS ORDERED: VANCOMYCIN 1,000 MG in SODIUM CHLORIDE 0.9% 100 ML IV ONE (19:00)
[2018-06-28] MEDS ORDERED: VANCOMYCIN PMX 1GM/200ML 200 ML IV ONE (19:00)
[2018-06-28 19:33] VITALS: BP 113/71
[2018-06-28] MEDS: SIMVASTATIN 20 MG TABLET PO SCH (20:11)
[2018-06-28] MEDS: GABAPENTIN 300 MG CAPSULE PO SCH (20:11)
[2018-06-28] MEDS: DIPHENHYDRAMINE 50 MG CAPSULE PO PRN ×2 (20:11→23:31)
[2018-06-28] MEDS: ONDANSETRON 2MG/ML, 2ML IVPush PRN (20:11)
[2018-06-28] MEDS: FAMOTIDINE 20 MG TABLET PO SCH (20:11)
[2018-06-29 02:27] VITALS: BP 99/64
[2018-06-29 08:13] LABS: BASOPHILS # (AUTO) 0.01 x10^3/uL (0-0.1); BASOPHILS % (AUTO) 0 % (0-1); EOSINOPHILS % (AUTO) 3 % (1-7); LYMPHOCYTES # (AUTO) 0.82 x10^3/uL (1-3.4); LYMPHOCYTES % (AUTO) 11 % (22-44); MD NO; MEAN CORPUSCULAR HEMOGLOBIN 29.6 pg (27.0-34.8); MEAN CORPUSCULAR HGB CONC 32.7 g/dL (32.4-35.8); MEAN CORPUSCULAR VOLUME 90.7 fL (80-100); MEAN PLATELET VOLUME 7.9 fL (7.4-10.4); MONOCYTES # (AUTO) 0.95 x10^3/uL (0.2-0.8); MONOCYTES % (AUTO) 13 % (2-9); NEUTROPHILS # (AUTO) 5.18 x10^3/uL (1.8-6.8); NEUTROPHILS % (AUTO) 72 % (42-75); PLATELET COUNT 165 x10^3/uL (130-400); RED BLOOD COUNT 3.64 x10^6/uL (3.82-5.3); RED CELL DISTRIBUTION WIDTH 16.2 % (9.6-15.2)
[2018-06-29 08:21] LABS: ANION GAP 7 mmol/L (5-15); CHLORIDE 96 mmol/L (98-107); CREATININE 6.67 mg/dL (0.55-1.02)
[2018-06-29 08:27] VITALS: BP 102/68
[2018-06-29] MEDS: TIZANIDINE 4MG TABLET PO SCH ×3 (08:46→21:29)
[2018-06-29] MEDS: BUPROPION 100 MG TABLET PO SCH ×2 (08:46→21:30)
[2018-06-29] MEDS: GEMFIBROZIL 600 MG TABLET PO SCH ×2 (08:46→21:29)
[2018-06-29] MEDS: CITALOPRAM 10 MG TABLET PO SCH (08:46)
[2018-06-29] MEDS: MULTIVITS,STRESS FORMULA 1 TABLET PO SCH (08:46)
[2018-06-29] MEDS: HYDROcodone/APAP 10/325 MG TABLET PO PRN ×3 (08:50→22:12)
[2018-06-29 13:48] VITALS: BP 107/69
[2018-06-29] MEDS: AMPICILLIN/SULBACTAM 3 GM in SODIUM CHLORIDE 0.9% 100 ML IV SCH (13:49)
[2018-06-29 19:09] VITALS: BP 94/58
[2018-06-29] MEDS: SIMVASTATIN 20 MG TABLET PO SCH (21:29)
[2018-06-29] MEDS: FAMOTIDINE 20 MG TABLET PO SCH (21:29)
[2018-06-29] MEDS: GABAPENTIN 300 MG CAPSULE PO SCH (21:29)
[2018-06-29] MEDS: DIPHENHYDRAMINE 50 MG CAPSULE PO PRN (22:50)
[2018-06-30 00:17] VITALS: BP 97/68
[2018-06-30 05:02] LABS: BASOPHILS # (AUTO) 0.03 x10^3/uL (0-0.1); BASOPHILS % (AUTO) 0 % (0-1); EOSINOPHILS # (AUTO) 0.43 x10^3/uL (0-0.4); EOSINOPHILS % (AUTO) 5 % (1-7); LYMPHOCYTES # (AUTO) 0.97 x10^3/uL (1-3.4); LYMPHOCYTES % (AUTO) 12 % (22-44); MD NO; MEAN CORPUSCULAR HEMOGLOBIN 30.6 pg (27.0-34.8); MEAN CORPUSCULAR HGB CONC 33.9 g/dL (32.4-35.8); MEAN CORPUSCULAR VOLUME 90.4 fL (80-100); MEAN PLATELET VOLUME 8.6 fL (7.4-10.4); MONOCYTES # (AUTO) 0.75 x10^3/uL (0.2-0.8); MONOCYTES % (AUTO) 10 % (2-9); NEUTROPHILS % (AUTO) 72 % (42-75); PLATELET COUNT 173 x10^3/uL (130-400); RED BLOOD COUNT 3.31 x10^6/uL (3.82-5.3); RED CELL DISTRIBUTION WIDTH 16.3 % (9.6-15.2)
[2018-06-30] MEDS: HYDROcodone/APAP 10/325 MG TABLET PO PRN ×2 (05:04→17:45)
[2018-06-30 05:06] LABS: ALBUMIN 2.5 g/dL (3.4-5.0); ANION GAP 10 mmol/L (5-15); CALCIUM 8.9 mg/dL (8.5-10.1); CHLORIDE 95 mmol/L (98-107)
[2018-06-30 05:12] LABS: ALANINE AMINOTRANSFERASE 11 U/L (12-78); ALKALINE PHOSPHATASE 109 U/L (45-117); BILIRUBIN,TOTAL 0.6 mg/dL (0.2-1.0); TOTAL PROTEIN 6.2 g/dL (6.4-8.2)
[2018-06-30 07:26] VITALS: BP 119/73
[2018-06-30] MEDS: GEMFIBROZIL 600 MG TABLET PO SCH (08:46)
[2018-06-30] MEDS: BUPROPION 100 MG TABLET PO SCH (08:46)
[2018-06-30] MEDS: TIZANIDINE 4MG TABLET PO SCH ×2 (08:46→16:09)
[2018-06-30] MEDS: CALCITRIOL 0.25 MCG CAPSULE PO SCH (08:46)
[2018-06-30] MEDS: MULTIVITS,STRESS FORMULA 1 TABLET PO SCH (08:47)
[2018-06-30] MEDS: CITALOPRAM 10 MG TABLET PO SCH (08:47)
[2018-06-30 12:25] VITALS: BP 120/68
[2018-06-30 19:45] VITALS: BP 113/68
[2018-07-01 01:24] VITALS: BP 122/72
[2018-07-01] MEDS: GEMFIBROZIL 600 MG TABLET PO SCH ×2 (01:33→10:46)
[2018-07-01] MEDS: BUPROPION 100 MG TABLET PO SCH ×2 (01:33→10:46)
[2018-07-01] MEDS: GABAPENTIN 300 MG CAPSULE PO SCH (01:33)
[2018-07-01] MEDS: TIZANIDINE 4MG TABLET PO SCH ×2 (01:33→10:47)
[2018-07-01] MEDS: SIMVASTATIN 20 MG TABLET PO SCH (01:33)
[2018-07-01] MEDS: FAMOTIDINE 20 MG TABLET PO SCH (01:33)
[2018-07-01] MEDS: AMPICILLIN/SULBACTAM 3 GM in SODIUM CHLORIDE 0.9% 100 ML IV SCH (01:34)
[2018-07-01] MEDS: HYDROcodone/APAP 10/325 MG TABLET PO PRN ×2 (01:48→10:51)
[2018-07-01 01:53] VITALS: BP 110/56
[2018-07-01] MEDS: DIPHENHYDRAMINE 50 MG CAPSULE PO PRN (02:14)
[2018-07-01 05:38] LABS: ALBUMIN 2.5 g/dL (3.4-5.0); ANION GAP 10 mmol/L (5-15); CALCIUM 8.8 mg/dL (8.5-10.1); CHLORIDE 98 mmol/L (98-107)
[2018-07-01 05:42] LABS: ALANINE AMINOTRANSFERASE 12 U/L (12-78); ALKALINE PHOSPHATASE 116 U/L (45-117); BILIRUBIN,TOTAL 0.5 mg/dL (0.2-1.0); CREATININE 6.28 mg/dL (0.55-1.02); TOTAL PROTEIN 6.3 g/dL (6.4-8.2)
[2018-07-01 07:45] VITALS: BP 113/68
[2018-07-01] MEDS ORDERED: DARBEPOETIN 60 MCG/ML SQ SCH (09:30)
[2018-07-01] MEDS: MULTIVITS,STRESS FORMULA 1 TABLET PO SCH (10:46)
[2018-07-01] MEDS: CITALOPRAM 10 MG TABLET PO SCH (10:46)
[2018-07-01] MEDS ORDERED: AMOX1TAB61 PO (12:59)
== END 2018-07-01 15:02 | disposition home health service (06) | DRG 264 ==
LOC: ED 16:07 → EDIP 16:15 → 4WST 17:15 → DCLOUNGE 07-01 14:39
PROVIDERS: ADMIT Hospitalist; ATTEND Hospitalist
PROC: 5A1D70Z Performance of Urinary Filtration, Intermittent, Less than 6 Hours Per Day (ICD-10-PCS; 2018-06-24)
PROC: 0JBD0ZZ Excision of Right Upper Arm Subcutaneous Tissue and Fascia, Open Approach (ICD-10-PCS; 2018-06-24)
PROC: 0J9D0ZZ Drainage of Right Upper Arm Subcutaneous Tissue and Fascia, Open Approach (ICD-10-PCS; principal; 2018-06-24 15:00)
PROC: 5A1D70Z Performance of Urinary Filtration, Intermittent, Less than 6 Hours Per Day (ICD-10-PCS; 2018-06-25)
PROC: 5A1D70Z Performance of Urinary Filtration, Intermittent, Less than 6 Hours Per Day (ICD-10-PCS; 2018-06-28)
PROC: 5A1D70Z Performance of Urinary Filtration, Intermittent, Less than 6 Hours Per Day (ICD-10-PCS; 2018-06-30)
DX: T82.7XXA Infection and inflammatory reaction due to other cardiac and vascular devices, implants and grafts, initial encounter (principal); N18.6 End stage renal disease; T81.31XA Disruption of external operation (surgical) wound, not elsewhere classified, initial encounter; E43 Unspecified severe protein-calorie malnutrition; A28.0 Pasteurellosis; E87.1 Hypo-osmolality and hyponatremia; I13.2 Hypertensive heart and chronic kidney disease with heart failure and with stage 5 chronic kidney disease, or end stage renal disease; L02.413 Cutaneous abscess of right upper limb; L03.113 Cellulitis of right upper limb; T82.848A Pain due to vascular prosthetic devices, implants and grafts, initial encounter; D50.9 Iron deficiency anemia, unspecified; D63.1 Anemia in chronic kidney disease; E78.5 Hyperlipidemia, unspecified; E83.51 Hypocalcemia; F17.210 Nicotine dependence, cigarettes, uncomplicated; F32.9 Major depressive disorder, single episode, unspecified; F41.9 Anxiety disorder, unspecified; I95.9 Hypotension, unspecified; I50.9 Heart failure, unspecified; N28.1 Cyst of kidney, acquired; J44.9 Chronic obstructive pulmonary disease, unspecified; K75.9 Inflammatory liver disease, unspecified; S09.90XA Unspecified injury of head, initial encounter; S61.051A Open bite of right thumb without damage to nail, initial encounter; W19.XXXA Unspecified fall, initial encounter; Y83.2 Surgical operation with anastomosis, bypass or graft as the cause of abnormal reaction of the patient, or of later complication, without mention of misadventure at the time of the procedure; G62.9 Polyneuropathy, unspecified; G89.29 Other chronic pain; M54.5 Low back pain; Z80.3 Family history of malignant neoplasm of breast; Z86.73 Personal history of transient ischemic attack (TIA), and cerebral infarction without residual deficits; Z88.8 Allergy status to other drugs, medicaments and biological substances; Z90.710 Acquired absence of both cervix and uterus; Z99.2 Dependence on renal dialysis; Z90.49 Acquired absence of other specified parts of digestive tract; Z98.51 Tubal ligation status; W55.01XA Bitten by cat, initial encounter
CPT/HCPCS: 36415; 70450; 71045; 78315; 80048; 80053; 80202; 81001; 82306; 82330; 83605; 83735; 83970; 84100; 84145; 84439; 84443; 84484; 85025; 85610; 85651; 85730; 86140; 86704; 86706; 86803; 87015; 87040; 87070; 87075; 87086; 87102; 87106; 87116; 87176; 87205; 87206; 87324; 87340; 93005; 99291; G0378; J0295; J0690; J0881; J1100; J2250; J2405; J2543; J2704; J3010; J3370; J3490; A9503; C9898; J2370; J7040; J7050

== ENCOUNTER 2018-07-05 13:54 | Outpatient (CLI) | payer MEDICARE, OTHER ==
[~2018-07-05 13:54] MED LIST changes: -AMLO10TA6 PO; +AMLO10TA8 PO; +AMOX1TAB61 PO; -GEMF600T4 PO; +GEMF600T8 PO
== END 2018-07-05 23:59 | disposition home or self-care (01) ==
LOC: WOUND 13:54
PROVIDERS: ATTEND Internal Medicine
DX: T81.89XA Other complications of procedures, not elsewhere classified, initial encounter (principal); L02.413 Cutaneous abscess of right upper limb; E78.5 Hyperlipidemia, unspecified; J44.9 Chronic obstructive pulmonary disease, unspecified; F41.9 Anxiety disorder, unspecified; K21.9 Gastro-esophageal reflux disease without esophagitis; F32.9 Major depressive disorder, single episode, unspecified; G89.29 Other chronic pain; G62.9 Polyneuropathy, unspecified; I13.2 Hypertensive heart and chronic kidney disease with heart failure and with stage 5 chronic kidney disease, or end stage renal disease; I50.9 Heart failure, unspecified; N18.6 End stage renal disease; Z90.710 Acquired absence of both cervix and uterus; Z88.8 Allergy status to other drugs, medicaments and biological substances; Z90.49 Acquired absence of other specified parts of digestive tract; Z86.718 Personal history of other venous thrombosis and embolism; Z86.73 Personal history of transient ischemic attack (TIA), and cerebral infarction without residual deficits; Z85.3 Personal history of malignant neoplasm of breast; Z87.891 Personal history of nicotine dependence; Z99.2 Dependence on renal dialysis; Z91.040 Latex allergy status; Y83.8 Other surgical procedures as the cause of abnormal reaction of the patient, or of later complication, without mention of misadventure at the time of the procedure; Y92.89 Other specified places as the place of occurrence of the external cause
CPT/HCPCS: 97597; G0463

== ENCOUNTER → 2018-07-13 | Outpatient (CLI) | payer MEDICARE, OTHER | END | disposition home or self-care (01) | LOC: WOUND 13:04 | PROVIDERS: ATTEND Nurse Practitioner Family | DX: T81.89XA Other complications of procedures, not elsewhere classified, initial encounter (principal); I13.2 Hypertensive heart and chronic kidney disease with heart failure and with stage 5 chronic kidney disease, or end stage renal disease; I50.9 Heart failure, unspecified; N18.6 End stage renal disease; G89.29 Other chronic pain; M54.5 Low back pain; J44.9 Chronic obstructive pulmonary disease, unspecified; E78.5 Hyperlipidemia, unspecified; F41.9 Anxiety disorder, unspecified; G62.9 Polyneuropathy, unspecified; F32.9 Major depressive disorder, single episode, unspecified; K21.9 Gastro-esophageal reflux disease without esophagitis; Z87.891 Personal history of nicotine dependence; Z99.2 Dependence on renal dialysis; Z90.710 Acquired absence of both cervix and uterus; Z90.49 Acquired absence of other specified parts of digestive tract; Z86.718 Personal history of other venous thrombosis and embolism; Z86.73 Personal history of transient ischemic attack (TIA), and cerebral infarction without residual deficits; Y83.8 Other surgical procedures as the cause of abnormal reaction of the patient, or of later complication, without mention of misadventure at the time of the procedure | CPT/HCPCS: G0463 ==

== ENCOUNTER 2018-10-18 19:49 | Emergency (ER) | payer MEDICARE, OTHER ==
[~2018-10-18] VITALS: Ht 175.3 cm; Wt 79.5 kg
--- NOTE | 2018-10-18 20:00 | NUR ---
JOYA IBARRA FROM [facility]. PT. REPORTS DIZZINESS AND 2 GLF R/T DIZZINESS TODAY. STATES "I HIT MY CHEEK ON THE SINK OR W/C". DENIES HITTING HEAD OR LOC. PT. A&O X 4. EKG DONE. DR. THOMPSON AT BS TO EVAL PT. PT. NOW ALSO C/O BLOODY STOOL RIGHT BEFORE FIRST GLF. PT. GETS DIALYSIS M,W,F. HAS RIGHT GRAFT. ALL MONITORS IN PLACE AND CALL LIGHT IN REACH. ALL SAFETY MEASURES OBSERVED.
[2018-10-18 20:37] LABS: MEAN CORPUSCULAR HEMOGLOBIN 28.3 pg (27.0-34.8); MEAN CORPUSCULAR HGB CONC 33.2 g/dL (32.4-35.8); MEAN CORPUSCULAR VOLUME 85.4 fL (80-100); MEAN PLATELET VOLUME 7.9 fL (7.4-10.4); PLATELET COUNT 168 x10^3/uL (130-400); RED BLOOD COUNT 4.73 x10^6/uL (3.82-5.3); RED CELL DISTRIBUTION WIDTH 22.8 % (9.6-15.2)
[2018-10-18 20:38] LABS: INTERNATIONAL NORMALIZED RATIO 1.03 (0.93-1.1); PROTHROMBIN TIME 10.8 Seconds (9.6-11.5)
[2018-10-18 20:39] LABS: ALANINE AMINOTRANSFERASE 19 U/L (12-78); ALBUMIN 3.6 g/dL (3.4-5.0); ANION GAP 13 mmol/L (5-15); CALCIUM 9.3 mg/dL (8.5-10.1); CHLORIDE 94 mmol/L (98-107); CREATININE 7.45 mg/dL (0.55-1.02)
[2018-10-18 20:43] LABS: ALKALINE PHOSPHATASE 160 U/L (45-117); BILIRUBIN,TOTAL 0.3 mg/dL (0.2-1.0); TOTAL PROTEIN 7.5 g/dL (6.4-8.2); TROPONIN I < 0.015 ng/mL (0.000-0.045)
--- NOTE | 2018-10-18 20:49 | NUR ---
PT. RESTING ON [facility] VISITING WITH FRIEND AT . [facility]. SKIN REMINS PWD, RESP EVEN, NON-LABORED. VS UPDATED AND STABLE. PT. DENIES NEEDS.
--- NOTE | 2018-10-18 21:27 | NUR ---
PT. AMBULATORY ON UNIT WITH STEADY GAIT. DENIES ANY DIZZINESS/WEAKNESS. C/O LEFT KNEE PAIN AND RIGHT BUTTOCK PAIN; THIS RN REQUESTED PT. TO TAKE OFF PANTS AND PT. IS REFUSING TO DO SO STATES "I KNOW IT'S JUST SORE/BRUISED, IT DOESN'T NEED TO BE LOOKED AT." PT. PLACED BACK ON MONITORS AND DR. THOMPSON UPDATED.
[2018-10-18 21:32] LABS: BASOPHILS # (AUTO) 0.02 x10^3/uL (0-0.1); BASOPHILS % (AUTO) 0 % (0-1); EOSINOPHILS # (AUTO) 0.26 x10^3/uL (0-0.4); EOSINOPHILS % (AUTO) 3 % (1-7); LYMPHOCYTES # (AUTO) 0.56 x10^3/uL (1-3.4); LYMPHOCYTES % (AUTO) 6 % (22-44); MD SCAN; MONOCYTES # (AUTO) 0.78 x10^3/uL (0.2-0.8); MONOCYTES % (AUTO) 8 % (2-9); NEUTROPHILS # (AUTO) 7.88 x10^3/uL (1.8-6.8); NEUTROPHILS % (AUTO) 83 % (42-75)
--- NOTE | 2018-10-18 21:42 | NUR ---
DR. THOMPSON WAS IN TO DISCUSS FINDINGS AND POC WITH PT. PT. DID TAKE OFF PANTS FOR DR. THOMPSON TO EVAL KNEE AND BUTTOCK.
[2018-10-18] MEDS ORDERED: HYDROcodone/APAP 10/325 MG TABLET ONE (21:45)
[2018-10-18] MEDS ORDERED: BACITRACIN ZINC OINT 500U/GM, 0.9 GM ONE (21:53)
[2018-10-18] MEDS ORDERED: HYDROcodone/APAP 10/325 MG TABLET PO ONE (22:00)
[2018-10-18 22:17] VITALS: BP 105/53
== END 2018-10-18 22:18 | disposition home or self-care (01) ==
LOC: ED 21:05
DX: K92.2 Gastrointestinal hemorrhage, unspecified (principal); R53.1 Weakness; S30.0XXA Contusion of lower back and pelvis, initial encounter; S50.312A Abrasion of left elbow, initial encounter; S80.212A Abrasion, left knee, initial encounter; Z86.718 Personal history of other venous thrombosis and embolism; I13.2 Hypertensive heart and chronic kidney disease with heart failure and with stage 5 chronic kidney disease, or end stage renal disease; N18.6 End stage renal disease; I50.9 Heart failure, unspecified; E78.5 Hyperlipidemia, unspecified; Z99.2 Dependence on renal dialysis; Z86.73 Personal history of transient ischemic attack (TIA), and cerebral infarction without residual deficits; J44.9 Chronic obstructive pulmonary disease, unspecified; Z90.49 Acquired absence of other specified parts of digestive tract; Z90.710 Acquired absence of both cervix and uterus; F32.9 Major depressive disorder, single episode, unspecified; X58.XXXA Exposure to other specified factors, initial encounter; Y93.89 Activity, other specified; Y92.89 Other specified places as the place of occurrence of the external cause; Y99.8 Other external cause status
CPT/HCPCS: 36415; 71045; 80053; 83735; 84484; 85025; 85610; 85730; 93005; 99284

== ENCOUNTER 2018-10-21 15:32 | Emergency (ER) | payer MEDICARE, OTHER ==
[~2018-10-21] VITALS: Ht 175.3 cm; Wt 81.5 kg
--- NOTE | 2018-10-21 15:48 | NUR ---
PT TO ROOM FROM LOBBY
[2018-10-21] MEDS ORDERED: SODIUM CHLORIDE FLUSH 10ML SYR IVF ONE (16:00)
[2018-10-21] MEDS ORDERED: SODIUM CHLORIDE 0.9% 1,000ML IVBOLUS ONE (16:00)
--- NOTE | 2018-10-21 16:09 | NUR ---
PT TO XR
--- NOTE | 2018-10-21 16:23 | NUR ---
pt returned from XR
[2018-10-21 16:50] LABS: ALBUMIN 3.4 g/dL (3.4-5.0); ANION GAP 12 mmol/L (5-15); CALCIUM 9.4 mg/dL (8.5-10.1); CHLORIDE 92 mmol/L (98-107)
[2018-10-21 16:54] LABS: MEAN CORPUSCULAR HEMOGLOBIN 27.9 pg (27.0-34.8); MEAN CORPUSCULAR HGB CONC 32.4 g/dL (32.4-35.8); MEAN CORPUSCULAR VOLUME 86.1 fL (80-100); MEAN PLATELET VOLUME 7.7 fL (7.4-10.4); PLATELET COUNT 188 x10^3/uL (130-400); RED BLOOD COUNT 4.36 x10^6/uL (3.82-5.3); RED CELL DISTRIBUTION WIDTH 24.5 % (9.6-15.2)
[2018-10-21 16:55] LABS: CREATININE 7.31 mg/dL (0.55-1.02); TROPONIN I < 0.015 ng/mL (0.000-0.045)
[2018-10-21 17:01] VITALS: BP 103/56
--- NOTE | 2018-10-21 17:01 | NUR ---
PT UPRIGHT ON GURNEY AWAKE & COMFORTABLE, WATCHING TV, RESPONDS APPROP TO STAFF, NAD, COMFORT MEASURES PROVIDED, FRIEND AT BS, CALL LIGHT WITHIN REACH.
--- NOTE | 2018-10-21 17:25 | NUR ---
Patient given discharge instructions and they have confirmed that they understand the instructions. Patient ambulatory with steady gait.
[2018-10-21 17:31] LABS: ANISOCYTOSIS 2+; BASOPHILS # (AUTO) 0.02 x10^3/uL (0-0.1); BASOPHILS % (AUTO) 1 % (0-1); EOSINOPHILS # (AUTO) 0.15 x10^3/uL (0-0.4); EOSINOPHILS % (AUTO) 3 % (1-7); LYMPHOCYTES # (AUTO) 0.84 x10^3/uL (1-3.4); LYMPHOCYTES % (AUTO) 18 % (22-44); MD MORPH REVIEW ONLY; MONOCYTES # (AUTO) 0.75 x10^3/uL (0.2-0.8); MONOCYTES % (AUTO) 16 % (2-9); NEUTROPHILS # (AUTO) 2.81 x10^3/uL (1.8-6.8); NEUTROPHILS % (AUTO) 62 % (42-75)
[2018-10-21 17:32] LABS: <PLATELET ESTIMATE> ADEQUATE; <PLT MORPHOLOGY> NORMAL PLT MORPH
== END 2018-10-21 17:32 | disposition home or self-care (01) ==
LOC: ED 17:19
DX: R55 Syncope and collapse (principal); R42 Dizziness and giddiness; E86.0 Dehydration; I13.2 Hypertensive heart and chronic kidney disease with heart failure and with stage 5 chronic kidney disease, or end stage renal disease; I50.9 Heart failure, unspecified; N18.6 End stage renal disease; F32.9 Major depressive disorder, single episode, unspecified; Z90.49 Acquired absence of other specified parts of digestive tract; Z86.718 Personal history of other venous thrombosis and embolism; Z90.710 Acquired absence of both cervix and uterus
CPT/HCPCS: 36415; 71045; 73502; 73564; 80048; 82040; 83880; 84484; 85025; 93005; 96360; 99284; J7030

== ENCOUNTER 2018-12-08 13:17 | Emergency (ER) | payer MEDICARE, OTHER ==
[~2018-12-08] VITALS: Ht 175.3 cm; Wt 82.9 kg
[2018-12-08 13:26] VITALS: BP 123/68
[2018-12-08] MEDS ORDERED: SODIUM CHLORIDE FLUSH 10ML SYR IVF ONE (13:30)
[2018-12-08 14:15] LABS: ALANINE AMINOTRANSFERASE 19 U/L (12-78); ALBUMIN 3.6 g/dL (3.4-5.0); ANION GAP 10 mmol/L (5-15); CALCIUM 8.9 mg/dL (8.5-10.1); CHLORIDE 93 mmol/L (98-107); CREATININE 8.83 mg/dL (0.55-1.02)
[2018-12-08 14:17] LABS: ALKALINE PHOSPHATASE 144 U/L (45-117); BILIRUBIN,TOTAL 0.5 mg/dL (0.2-1.0); TOTAL PROTEIN 7.5 g/dL (6.4-8.2)
[2018-12-08 14:30] LABS: MEAN CORPUSCULAR HEMOGLOBIN 32.2 pg (27.0-34.8); MEAN CORPUSCULAR HGB CONC 32.3 g/dL (32.4-35.8); MEAN CORPUSCULAR VOLUME 99.8 fL (80-100); MEAN PLATELET VOLUME 7.5 fL (7.4-10.4); PLATELET COUNT 178 x10^3/uL (130-400); RED BLOOD COUNT 4.77 x10^6/uL (3.82-5.3); RED CELL DISTRIBUTION WIDTH 22.3 % (9.6-15.2)
[2018-12-08 14:31] LABS: BASOPHILS # (AUTO) 0.02 x10^3/uL (0-0.1); BASOPHILS % (AUTO) 0 % (0-1); EOSINOPHILS # (AUTO) 0.41 x10^3/uL (0-0.4); EOSINOPHILS % (AUTO) 6 % (1-7); LYMPHOCYTES # (AUTO) 1.07 x10^3/uL (1-3.4); LYMPHOCYTES % (AUTO) 15 % (22-44); MD MORPH REVIEW ONLY; MONOCYTES # (AUTO) 0.71 x10^3/uL (0.2-0.8); MONOCYTES % (AUTO) 10 % (2-9); NEUTROPHILS # (AUTO) 4.82 x10^3/uL (1.8-6.8); NEUTROPHILS % (AUTO) 69 % (42-75)
--- NOTE | 2018-12-08 14:50 | NUR ---
PT PRESENTED TO ED WITH RIGHT LOWER QUADRANT ABD PAIN X 1 WEEK. PT DENIES CONSTIPATION OR DIARRHEA. PT A&OX4. PT PLACED IN ROOM AND PLACED ON BP AND CONT. PULSE OXIMETER. ASSESSMENT COMPLETED. CALL LIGHT IN REACH. PT STATES PAIN OF 8/10. AWAITING MD.
[2018-12-08 14:51] LABS: ANISOCYTOSIS 2+
[2018-12-08 14:53] LABS: OVALOCYTES 1+
[2018-12-08 14:54] LABS: <PLATELET ESTIMATE> ADEQUATE; <PLT MORPHOLOGY> NORMAL PLT MORPH
[2018-12-08] MEDS ORDERED: KETOROLAC 30 MG/1 ML IM ONE (15:30)
[2018-12-08] MEDS ORDERED: KETOROLAC 30 MG/1 ML ONE (15:38)
== END 2018-12-08 16:29 | disposition home or self-care (01) ==
LOC: ED 15:07
DX: R10.11 Right upper quadrant pain (principal); R10.31 Right lower quadrant pain; I50.9 Heart failure, unspecified; E78.5 Hyperlipidemia, unspecified; J44.9 Chronic obstructive pulmonary disease, unspecified; Z86.73 Personal history of transient ischemic attack (TIA), and cerebral infarction without residual deficits; Z90.49 Acquired absence of other specified parts of digestive tract; Z90.710 Acquired absence of both cervix and uterus; F17.200 Nicotine dependence, unspecified, uncomplicated
CPT/HCPCS: 36415; 74022; 80053; 85025; 96372; 99284; J1885

== ENCOUNTER 2018-12-09 15:31 | Emergency (ER) | payer MEDICARE, OTHER ==
[~2018-12-09] VITALS: Ht 175.3 cm; Wt 81.6 kg
[2018-12-09] MEDS ORDERED: SODIUM CHLORIDE FLUSH 10ML SYR IVF ONE (16:00)
--- NOTE | 2018-12-09 16:09 | NUR ---
PT HAS ESRD ON DIALYSIS, ANURIC. NOT ABLE TO OBTAIN URINE SAMPLE
[2018-12-09 16:22] LABS: ALBUMIN 3.6 g/dL (3.4-5.0); ANION GAP 12 mmol/L (5-15); CALCIUM 9.3 mg/dL (8.5-10.1); CHLORIDE 94 mmol/L (98-107)
[2018-12-09 16:26] LABS: ALANINE AMINOTRANSFERASE 16 U/L (12-78); ALKALINE PHOSPHATASE 159 U/L (45-117); BILIRUBIN,TOTAL 0.8 mg/dL (0.2-1.0); CREATININE 6.88 mg/dL (0.55-1.02); TOTAL PROTEIN 7.7 g/dL (6.4-8.2)
--- NOTE | 2018-12-09 16:26 | NUR ---
PT TO CT
[2018-12-09] MEDS ORDERED: KETOROLAC 30 MG/1 ML IM ONE (16:30)
[2018-12-09] MEDS ORDERED: KETOROLAC 60 MG/2 ML ONE (16:37)
[2018-12-09 16:45] LABS: BASOPHILS # (AUTO) 0.02 x10^3/uL (0-0.1); BASOPHILS % (AUTO) 0 % (0-1); EOSINOPHILS % (AUTO) 4 % (1-7); LYMPHOCYTES # (AUTO) 0.94 x10^3/uL (1-3.4); LYMPHOCYTES % (AUTO) 14 % (22-44); MD MORPH REVIEW ONLY; MEAN CORPUSCULAR HGB CONC 32.7 g/dL (32.4-35.8); MEAN CORPUSCULAR VOLUME 100.9 fL (80-100); MEAN PLATELET VOLUME 7.8 fL (7.4-10.4); MONOCYTES # (AUTO) 0.85 x10^3/uL (0.2-0.8); MONOCYTES % (AUTO) 13 % (2-9); NEUTROPHILS # (AUTO) 4.68 x10^3/uL (1.8-6.8); NEUTROPHILS % (AUTO) 69 % (42-75); PLATELET COUNT 181 x10^3/uL (130-400); RED BLOOD COUNT 5.01 x10^6/uL (3.82-5.3); RED CELL DISTRIBUTION WIDTH 22.8 % (9.6-15.2)
[2018-12-09 16:46] LABS: ANISOCYTOSIS 2+
[2018-12-09 16:47] LABS: <PLATELET ESTIMATE> ADEQUATE; <PLT MORPHOLOGY> NORMAL PLT MORPH; OVALOCYTES 1+
[2018-12-09 18:25] VITALS: BP 103/61
== END 2018-12-09 18:27 | disposition home or self-care (01) ==
LOC: ED 17:28
DX: R10.31 Right lower quadrant pain (principal); T50.8X1A Poisoning by diagnostic agents, accidental (unintentional), initial encounter; Y92.89 Other specified places as the place of occurrence of the external cause; J44.9 Chronic obstructive pulmonary disease, unspecified; I11.0 Hypertensive heart disease with heart failure; I50.9 Heart failure, unspecified; F32.9 Major depressive disorder, single episode, unspecified; E78.5 Hyperlipidemia, unspecified; I13.2 Hypertensive heart and chronic kidney disease with heart failure and with stage 5 chronic kidney disease, or end stage renal disease; N18.6 End stage renal disease; Z99.2 Dependence on renal dialysis; F17.200 Nicotine dependence, unspecified, uncomplicated; Z86.73 Personal history of transient ischemic attack (TIA), and cerebral infarction without residual deficits; Z90.49 Acquired absence of other specified parts of digestive tract; Z90.710 Acquired absence of both cervix and uterus
CPT/HCPCS: 36415; 74176; 80053; 85025; 99284

== ENCOUNTER 2018-12-25 14:37 | Emergency (ER) | payer MEDICARE, OTHER ==
[~2018-12-25] VITALS: Ht 175.3 cm; Wt 81.3 kg
[2018-12-25 14:40] VITALS: BP 89/58
--- NOTE | 2018-12-25 15:47 | NUR ---
PATIENT AMB WITH STEADY GAIT TO ROOM 13.
--- NOTE | 2018-12-25 16:11 | NUR ---
PATIENT PRESENTS TO ED TODAY FOR RIGHT LOWER ABD PAIN RADIATING TO FLANK SIDE, NADN, PATIENT TO BE DC'D PER ERP, AWAITING DC ORDERS, CALL LIGHT WITHIN REACH.
--- NOTE | 2018-12-25 16:23 | NUR ---
PATIENT NOT IN ROOM, PATIENT LEFT PRIOR TO RECEIVING DC PAPERWORK. UNABLE TO OBTAIN DC VS OR GIVE DC PAPERWORK.
== END 2018-12-25 16:25 | disposition home or self-care (01) ==
LOC: ED 16:00
DX: G89.29 Other chronic pain (principal); R10.31 Right lower quadrant pain; E78.5 Hyperlipidemia, unspecified; Z86.73 Personal history of transient ischemic attack (TIA), and cerebral infarction without residual deficits; Z86.718 Personal history of other venous thrombosis and embolism; I11.0 Hypertensive heart disease with heart failure; I50.9 Heart failure, unspecified; Z90.710 Acquired absence of both cervix and uterus; Z90.49 Acquired absence of other specified parts of digestive tract
CPT/HCPCS: 99281

== ENCOUNTER 2019-04-13 11:47 | Emergency (ER) | payer MEDICARE, OTHER ==
[~2019-04-13] VITALS: Ht 172.7 cm; Wt 82.0 kg
[~2019-04-13 11:47] MED LIST changes: -HYDR-3307 PO; +HYDR-36 PO; -TIZA4TAB PO; +TIZA4TAB2 PO
[2019-04-13] MEDS ORDERED: HYDROcodone/APAP 5/325 TABLET PO ONE (12:30)
[2019-04-13] MEDS ORDERED: HYDROcodone/APAP 5/325 TABLET ONE (12:50)
[2019-04-13 13:17] VITALS: BP 101/57
== END 2019-04-13 13:18 | disposition home or self-care (01) ==
LOC: ED 12:38
DX: S76.112A Strain of left quadriceps muscle, fascia and tendon, initial encounter (principal); S76.212A Strain of adductor muscle, fascia and tendon of left thigh, initial encounter; I11.0 Hypertensive heart disease with heart failure; I50.9 Heart failure, unspecified; F32.9 Major depressive disorder, single episode, unspecified; Z86.73 Personal history of transient ischemic attack (TIA), and cerebral infarction without residual deficits; J44.9 Chronic obstructive pulmonary disease, unspecified; X50.0XXA Overexertion from strenuous movement or load, initial encounter; Y93.89 Activity, other specified; Y92.89 Other specified places as the place of occurrence of the external cause; Y99.8 Other external cause status
CPT/HCPCS: 99283

== ENCOUNTER 2019-04-22 20:40 | Emergency (ER) | payer MEDICARE, OTHER ==
[~2019-04-22] VITALS: Ht 175.3 cm; Wt 85.0 kg
[2019-04-22] MEDS ORDERED: SODIUM CHLORIDE 0.9%, 500ML IVBOLUS ONE (21:00)
--- NOTE | 2019-04-22 21:00 | NUR ---
REPORT FROM BURKE DIANE
[2019-04-22 21:10] VITALS: BP 113/54
[2019-04-22] MEDS ORDERED: HYDROcodone/APAP 5/325 TABLET ONE (21:15)
--- NOTE | 2019-04-22 21:15 | NUR ---
PT HERE FOR HOTN AT DIALYSIS TODAY. PT RECIEVING FLUIDS. VS IMPROVED. PT TO BE DISCHARGED
--- NOTE | 2019-04-22 21:25 | NUR ---
Patient given discharge instructions and they have confirmed that they understand the instructions. Patient ambulatory with steady gait.
[2019-04-22] MEDS ORDERED: HYDROcodone/APAP 5/325 TABLET PO ONE (21:30)
[2019-04-22] MEDS ORDERED: DIPHENHYDRAMINE 50 MG CAPSULE ONE (23:04)
== END 2019-04-22 21:29 | disposition home or self-care (01) ==
LOC: ED 21:00
DX: I95.9 Hypotension, unspecified (principal); I13.2 Hypertensive heart and chronic kidney disease with heart failure and with stage 5 chronic kidney disease, or end stage renal disease; N18.6 End stage renal disease; I50.9 Heart failure, unspecified; Z99.2 Dependence on renal dialysis; E78.5 Hyperlipidemia, unspecified; J44.9 Chronic obstructive pulmonary disease, unspecified; Z90.49 Acquired absence of other specified parts of digestive tract; Z90.710 Acquired absence of both cervix and uterus; Z87.891 Personal history of nicotine dependence
CPT/HCPCS: 93005; 99283; J7040

== ENCOUNTER 2019-05-04 08:28 | Outpatient (CLI) | payer MEDICARE, OTHER ==
[2019-05-04 09:22] LABS: BASOPHILS # (AUTO) 0.01 x10^3/uL (0-0.1); BASOPHILS % (AUTO) 0 % (0-1); EOSINOPHILS # (AUTO) 0.25 x10^3/uL (0-0.4); EOSINOPHILS % (AUTO) 5 % (1-7); LYMPHOCYTES # (AUTO) 0.69 x10^3/uL (1-3.4); LYMPHOCYTES % (AUTO) 12 % (22-44); MD NO; MEAN CORPUSCULAR HEMOGLOBIN 32.3 pg (27.0-34.8); MEAN CORPUSCULAR HGB CONC 32.7 g/dL (32.4-35.8); MEAN CORPUSCULAR VOLUME 98.8 fL (80-100); MEAN PLATELET VOLUME 7.9 fL (7.4-10.4); MONOCYTES % (AUTO) 13 % (2-9); NEUTROPHILS # (AUTO) 3.91 x10^3/uL (1.8-6.8); NEUTROPHILS % (AUTO) 70 % (42-75); PLATELET COUNT 219 x10^3/uL (130-400); RED BLOOD COUNT 4.81 x10^6/uL (3.82-5.3); RED CELL DISTRIBUTION WIDTH 16.7 % (9.6-15.2)
[2019-05-04 09:35] LABS: CHLORIDE 95 mmol/L (98-107)
[2019-05-04 09:52] LABS: ALANINE AMINOTRANSFERASE 14 U/L (12-78); ALBUMIN 3.2 g/dL (3.4-5.0); ALKALINE PHOSPHATASE 167 U/L (45-117); ANION GAP 13 mmol/L (5-15); BILIRUBIN,TOTAL 0.5 mg/dL (0.2-1.0); CALCIUM 10.3 mg/dL (8.5-10.1); CHOL/HDL RATIO 1.9; CHOLESTEROL, TOTAL 110 mg/dL (140-239); CREATININE 7.76 mg/dL (0.55-1.02); HDL CHOL % 54 % (28-40); HDL CHOLESTEROL (DIRECT) 59 mg/dL (40-60); LDL CHOLESTEROL,CALCULATED 38 mg/dL (54-169); LDL/HDL RATIO 0.6 (0.5-3.0); TOTAL PROTEIN 7.2 g/dL (6.4-8.2); TRIGLYCERIDES 65 mg/dL (50-200); VLDL CHOLESTEROL 13 mg/dL (0-25)
== END 2019-05-04 23:59 | disposition home or self-care (01) ==
LOC: CFH 08:28
PROVIDERS: ATTEND Orthopaedic Surgery
DX: S92.015A Nondisplaced fracture of body of left calcaneus, initial encounter for closed fracture (principal); M14.672 Charcot's joint, left ankle and foot; I63.9 Cerebral infarction, unspecified; R94.6 Abnormal results of thyroid function studies; Z87.891 Personal history of nicotine dependence; Z88.1 Allergy status to other antibiotic agents; Z88.6 Allergy status to analgesic agent; Z91.041 Radiographic dye allergy status; Z88.8 Allergy status to other drugs, medicaments and biological substances; X58.XXXA Exposure to other specified factors, initial encounter; Y93.89 Activity, other specified; Y92.89 Other specified places as the place of occurrence of the external cause; Y99.8 Other external cause status
CPT/HCPCS: 36415; 80053; 80061; 82140; 83880; 84443; 85025

== ENCOUNTER 2020-04-05 18:21 | Outpatient (CLI) | payer MEDICARE, OTHER ==
[~2020-04-05 18:21] MED LIST changes: +AMLO-211 PO; -AMLO10TA8 PO; +HYDR-3246 PO; -HYDR-36 PO; +SIMV20TA19 PO; -SIMV20TA3 PO
[2020-04-05 19:16] LABS: BASOPHILS % (AUTO) 1 % (0-1); EOSINOPHILS % (AUTO) 4 % (1-7); LYMPHOCYTES % (AUTO) 18 % (22-44); MEAN CORPUSCULAR HEMOGLOBIN 28.7 pg (27.0-34.8); MEAN CORPUSCULAR HGB CONC 32.4 g/dL (32.4-35.8); MEAN PLATELET VOLUME 7.7 fL (7.4-10.4); MONOCYTES % (AUTO) 12 % (2-9); NEUTROPHILS % (AUTO) 65 % (42-75); PLATELET COUNT 209 x10^3/uL (130-400); RED CELL DISTRIBUTION WIDTH 15.8 % (9.6-15.2)
[2020-04-05 19:19] LABS: MD NO
[2020-04-05 19:20] LABS: RED BLOOD COUNT 6.01 x10^6/uL (3.82-5.3)
[2020-04-05 19:40] LABS: FREE T4 (FREE THYROXINE) 1.97 ng/dL (0.76-1.46)
== END 2020-04-05 23:59 | disposition home or self-care (01) ==
LOC: LAB 18:21
PROVIDERS: ATTEND Internal Medicine
DX: R61 Generalized hyperhidrosis (principal)
CPT/HCPCS: 36415; 84439; 84443; 85025

== ENCOUNTER 2020-04-19 10:08 | Emergency (ER) | payer MEDICARE, OTHER ==
[~2020-04-19] VITALS: Ht 172.7 cm; Wt 85.4 kg
[~2020-04-19 10:08] MED LIST changes: -AMLO-211 PO; +AMLO10TA8 PO
[2020-04-19] MEDS ORDERED: SODIUM CHLORIDE FLUSH 10ML SYR IVF ONE (11:00)
--- NOTE | 2020-04-19 11:13 | NUR ---
PER DR MIKO JACOBS TO HOLD PIV ACCESS AT THIS TIME.
[2020-04-19 11:22] LABS: BASOPHILS % (AUTO) 0 % (0-1); EOSINOPHILS % (AUTO) 0 % (1-7); LYMPHOCYTES % (AUTO) 5 % (22-44); MEAN CORPUSCULAR HEMOGLOBIN 27.4 pg (27.0-34.8); MEAN CORPUSCULAR HGB CONC 31.9 g/dL (32.4-35.8); MEAN PLATELET VOLUME 7.9 fL (7.4-10.4); MONOCYTES % (AUTO) 5 % (2-9); NEUTROPHILS % (AUTO) 90 % (42-75); PLATELET COUNT 222 x10^3/uL (130-400); RED BLOOD COUNT 6.25 x10^6/uL (3.82-5.3); RED CELL DISTRIBUTION WIDTH 16.1 % (9.6-15.2)
[2020-04-19 11:35] LABS: ALBUMIN 3.8 g/dL (3.4-5.0); ANION GAP 14 mmol/L (5-15); CALCIUM 7.5 mg/dL (8.5-10.1); CHLORIDE 94 mmol/L (98-107)
[2020-04-19 11:38] LABS: ALANINE AMINOTRANSFERASE 17 U/L (12-78); ALKALINE PHOSPHATASE 126 U/L (45-117); BILIRUBIN,TOTAL 0.6 mg/dL (0.2-1.0); CREATININE 7.34 mg/dL (0.55-1.02); TOTAL PROTEIN 8.3 g/dL (6.4-8.2)
[2020-04-19 11:52] LABS: MD SCAN
[2020-04-19] MEDS ORDERED: CALCIUM CARBONATE 500 MG TAB.CHEW ONE (12:57)
[2020-04-19] MEDS ORDERED: CALCIUM CARBONATE 500 MG TAB.CHEW PO ONE (13:00)
--- NOTE | 2020-04-19 13:00 | NUR ---
PT SITTING UPRIGHT ON GEORGE ALFARO. ERP AT BEDSIDE. PT DENIES ANY NEEDS AT THIS TIME. AWAITING D/C. CALL LIGHT WITHIN REACH, FALL PRECAUTIONS IN PLACE.
[2020-04-19 13:20] LABS: FREE T4 (FREE THYROXINE) 0.86 ng/dL (0.76-1.46)
--- NOTE | 2020-04-19 13:50 | NUR ---
Patient given discharge instructions and they have confirmed that they understand the instructions. Patient to d/c desk using hospital wheelchair with friend.
[2020-04-19 13:51] VITALS: BP 111/61
== END 2020-04-19 13:53 | disposition home or self-care (01) ==
LOC: ED 10:58
DX: M62.838 Other muscle spasm (principal); E83.39 Other disorders of phosphorus metabolism; R10.9 Unspecified abdominal pain; E11.22 Type 2 diabetes mellitus with diabetic chronic kidney disease; I13.2 Hypertensive heart and chronic kidney disease with heart failure and with stage 5 chronic kidney disease, or end stage renal disease; N18.6 End stage renal disease; J44.9 Chronic obstructive pulmonary disease, unspecified; E83.51 Hypocalcemia; I95.9 Hypotension, unspecified; E87.1 Hypo-osmolality and hyponatremia; E78.5 Hyperlipidemia, unspecified; E87.5 Hyperkalemia; Z99.2 Dependence on renal dialysis; Z86.73 Personal history of transient ischemic attack (TIA), and cerebral infarction without residual deficits; Z90.49 Acquired absence of other specified parts of digestive tract; Z87.891 Personal history of nicotine dependence; Z90.710 Acquired absence of both cervix and uterus; Z98.51 Tubal ligation status; Z86.718 Personal history of other venous thrombosis and embolism
CPT/HCPCS: 36415; 80053; 83690; 83735; 84100; 84439; 84443; 85025; 99283

== ENCOUNTER 2020-04-21 13:24 | Emergency (ER) | payer MEDICARE, OTHER ==
[~2020-04-21] VITALS: Ht 172.7 cm; Wt 84.0 kg
[2020-04-21 13:30] VITALS: BP 148/122
[2020-04-21 14:10] LABS: ALBUMIN 3.7 g/dL (3.4-5.0); ANION GAP 14 mmol/L (5-15); CALCIUM 7.6 mg/dL (8.5-10.1); CHLORIDE 94 mmol/L (98-107)
[2020-04-21 14:12] LABS: BASOPHILS % (AUTO) 1 % (0-1); EOSINOPHILS % (AUTO) 1 % (1-7); LYMPHOCYTES % (AUTO) 16 % (22-44); MEAN CORPUSCULAR HEMOGLOBIN 27.4 pg (27.0-34.8); MEAN CORPUSCULAR HGB CONC 31.7 g/dL (32.4-35.8); MEAN PLATELET VOLUME 7.8 fL (7.4-10.4); MONOCYTES % (AUTO) 11 % (2-9); NEUTROPHILS % (AUTO) 71 % (42-75); PLATELET COUNT 238 x10^3/uL (130-400); RED BLOOD COUNT 6.42 x10^6/uL (3.82-5.3); RED CELL DISTRIBUTION WIDTH 16.7 % (9.6-15.2)
[2020-04-21 14:15] LABS: CREATININE 6.79 mg/dL (0.55-1.02); MD NO; TROPONIN I < 0.015 ng/mL (0.000-0.045)
[2020-04-21] MEDS ORDERED: DIAZEPAM 5 MG TABLET ONE (17:18)
[2020-04-21] MEDS ORDERED: DIAZEPAM 5 MG TABLET PO ONE (17:30)
== END 2020-04-21 18:41 | disposition home or self-care (01) ==
LOC: ED 14:03
DX: M79.10 Myalgia, unspecified site (principal); R07.89 Other chest pain; R10.9 Unspecified abdominal pain; E11.9 Type 2 diabetes mellitus without complications; I11.0 Hypertensive heart disease with heart failure; I50.9 Heart failure, unspecified; I95.9 Hypotension, unspecified; E83.51 Hypocalcemia; J44.9 Chronic obstructive pulmonary disease, unspecified; Z86.73 Personal history of transient ischemic attack (TIA), and cerebral infarction without residual deficits; Z90.49 Acquired absence of other specified parts of digestive tract; Z87.891 Personal history of nicotine dependence; Z86.718 Personal history of other venous thrombosis and embolism; Z90.710 Acquired absence of both cervix and uterus
CPT/HCPCS: 36415; 71045; 80048; 82040; 83735; 83880; 84100; 84484; 85025; 93005; 99285

== ENCOUNTER 2020-04-24 11:20 | Emergency (ER) | payer MEDICARE, OTHER ==
[~2020-04-24] VITALS: Ht 172.7 cm; Wt 85.0 kg
[~2020-04-24 11:20] MED LIST changes: +AMLO-211 PO; -AMLO10TA8 PO
--- NOTE | 2020-04-24 12:48 | NUR ---
UPDATED PT ON WAIT. PROVIDER BUSY WITH CRITICAL PT. PT VERBLAIZES UNDERSTANDING. NO NEEDS AT THIS TIME. VSS.
[2020-04-24] MEDS ORDERED: MAALOX/HYOSCYAMINE/LIDOCAINE 45 ML BTL PO ONE (13:00)
[2020-04-24] MEDS ORDERED: MAALOX/HYOSCYAMINE/LIDOCAINE 45 ML BTL ONE (13:12)
[2020-04-24 13:16] LABS: BASOPHILS % (AUTO) 1 % (0-1); EOSINOPHILS % (AUTO) 4 % (1-7); LYMPHOCYTES % (AUTO) 13 % (22-44); MEAN CORPUSCULAR HEMOGLOBIN 27.2 pg (27.0-34.8); MEAN CORPUSCULAR HGB CONC 32.2 g/dL (32.4-35.8); MEAN PLATELET VOLUME 7.7 fL (7.4-10.4); MONOCYTES % (AUTO) 12 % (2-9); NEUTROPHILS % (AUTO) 72 % (42-75); PLATELET COUNT 218 x10^3/uL (130-400); RED BLOOD COUNT 6.09 x10^6/uL (3.82-5.3); RED CELL DISTRIBUTION WIDTH 16.5 % (9.6-15.2)
[2020-04-24 13:18] LABS: MD NO
[2020-04-24 13:28] LABS: ALANINE AMINOTRANSFERASE 23 U/L (12-78); ALBUMIN 3.3 g/dL (3.4-5.0); ANION GAP 10 mmol/L (5-15); CALCIUM 6.6 mg/dL (8.5-10.1); CHLORIDE 92 mmol/L (98-107)
[2020-04-24 13:30] LABS: ALKALINE PHOSPHATASE 148 U/L (45-117); BILIRUBIN,TOTAL 1.1 mg/dL (0.2-1.0); CREATININE 7.32 mg/dL (0.55-1.02); TOTAL PROTEIN 7.8 g/dL (6.4-8.2)
--- NOTE | 2020-04-24 13:32 | NUR ---
PT STATES SHE HASN'T PRODUCED ANY URINE FOR MANY YEARS. PT REFUSING STRAIGHT CATH.
[2020-04-24 15:00] VITALS: BP 116/62
== END 2020-04-24 15:01 | disposition home or self-care (01) ==
LOC: ED 13:02
DX: R10.13 Epigastric pain (principal); R10.12 Left upper quadrant pain; M79.10 Myalgia, unspecified site; I12.9 Hypertensive chronic kidney disease with stage 1 through stage 4 chronic kidney disease, or unspecified chronic kidney disease; E11.22 Type 2 diabetes mellitus with diabetic chronic kidney disease; N18.4 Chronic kidney disease, stage 4 (severe); R94.31 Abnormal electrocardiogram [ECG] [EKG]; J44.9 Chronic obstructive pulmonary disease, unspecified; Z86.73 Personal history of transient ischemic attack (TIA), and cerebral infarction without residual deficits
CPT/HCPCS: 36415; 74022; 80053; 83690; 85025; 93005; 99285

== ENCOUNTER 2020-11-06 14:57 | Emergency (ER) | payer MEDICARE, OTHER, MEDICAID ==
[~2020-11-06] VITALS: Ht 175.3 cm; Wt 88.5 kg
[~2020-11-06 14:57] MED LIST changes: +ALBU18HF PO; +CELE-47 PO; +CINA30TA2 PO; +CINA30TA6 PO; -CYCL-259 PO; +CYCL10TA2 PO; +DULO30CA44 PO; +FLUT1AER INH; +FOLI0.8T33 PO; +GEMF-31 PO; -GEMF600T8 PO; +HYDR-2214 PO; -HYDR-3240 PO; -HYDR-3246 PO; +HYDR-3248 PO; +HYDR-826 PO; +METR500T PO; +MIDO5TAB4 PO; +OMEP20CA20 PO; +ONDA4TAB7 PO; +ROPI1TAB4 PO; +SENN-92 PO
[2020-11-06 17:44] LABS: BASOPHILS % (AUTO) 1 % (0-1); EOSINOPHILS % (AUTO) 5 % (1-7); LYMPHOCYTES % (AUTO) 17 % (22-44); MD NO; MEAN CORPUSCULAR HEMOGLOBIN 23.1 pg (27.0-34.8); MEAN CORPUSCULAR HGB CONC 31.1 g/dL (32.4-35.8); MEAN PLATELET VOLUME 7.9 fL (7.4-10.4); MONOCYTES % (AUTO) 11 % (2-9); NEUTROPHILS % (AUTO) 65 % (42-75); PLATELET COUNT 178 x10^3/uL (130-400); RED BLOOD COUNT 5.73 x10^6/uL (3.82-5.3); RED CELL DISTRIBUTION WIDTH 16.8 % (9.6-15.2)
--- NOTE | 2020-11-06 17:46 | NUR ---
radiochemical technician: pt from lobby to room 38
[2020-11-06 17:53] LABS: ALBUMIN 3.9 g/dL (3.4-5.0); ANION GAP 10 mmol/L (5-15); CALCIUM 8.9 mg/dL (8.5-10.1); CHLORIDE 97 mmol/L (98-107)
[2020-11-06 17:57] LABS: ALANINE AMINOTRANSFERASE 20 U/L (12-78); ALKALINE PHOSPHATASE 147 U/L (45-117); BILIRUBIN,TOTAL 2.1 mg/dL (0.2-1.0); CREATININE 7.96 mg/dL (0.55-1.02); TOTAL PROTEIN 7.9 g/dL (6.4-8.2)
--- NOTE | 2020-11-06 18:45 | NUR ---
REPORT TO KENDY RN
[2020-11-06 20:09] VITALS: BP 120/55
--- NOTE | 2020-11-06 20:10 | NUR ---
Patient given discharge instructions and they have confirmed that they understand the instructions. Patient ambulatory with steady gait. No questions at time of discharge.
== END 2020-11-06 20:12 | disposition home or self-care (01) ==
LOC: ED 18:14
DX: M79.10 Myalgia, unspecified site (principal); I12.9 Hypertensive chronic kidney disease with stage 1 through stage 4 chronic kidney disease, or unspecified chronic kidney disease; E11.22 Type 2 diabetes mellitus with diabetic chronic kidney disease; N18.6 End stage renal disease; J44.9 Chronic obstructive pulmonary disease, unspecified; E78.5 Hyperlipidemia, unspecified; Z99.2 Dependence on renal dialysis; Z90.49 Acquired absence of other specified parts of digestive tract; Z90.710 Acquired absence of both cervix and uterus
CPT/HCPCS: 36415; 80053; 83735; 85025; 99285

== ENCOUNTER 2021-03-07 11:07 | Day surgery (SDC) | payer MEDICARE, OTHER, MEDICAID ==
[2021-03-04 11:09] LABS: BASOPHILS % (AUTO) 1 % (0-1); EOSINOPHILS % (AUTO) 5 % (1-7); LYMPHOCYTES % (AUTO) 11 % (22-44); MEAN CORPUSCULAR HGB CONC 32.6 g/dL (32.4-35.8); MEAN PLATELET VOLUME 7.9 fL (7.4-10.4); MONOCYTES % (AUTO) 9 % (2-9); NEUTROPHILS % (AUTO) 75 % (42-75); PLATELET COUNT 202 x10^3/uL (130-400); RED BLOOD COUNT 4.82 x10^6/uL (3.82-5.3); RED CELL DISTRIBUTION WIDTH 23.6 % (9.6-15.2)
[2021-03-04 11:20] LABS: CALCIUM 10.7 mg/dL (8.5-10.1); CHLORIDE 96 mmol/L (98-107); INTERNATIONAL NORMALIZED RATIO 0.99 (0.93-1.1); PROTHROMBIN TIME 10.6 Seconds (9.6-11.5)
[2021-03-04 11:26] LABS: ALANINE AMINOTRANSFERASE 21 U/L (12-78); ALBUMIN 3.4 g/dL (3.4-5.0); ALKALINE PHOSPHATASE 89 U/L (45-117); BILIRUBIN,TOTAL 2.8 mg/dL (0.2-1.0)
[2021-03-04 11:55] LABS: ANION GAP 15 mmol/L (5-15)
[~2021-03-07] VITALS: Ht 172.7 cm; Wt 89.3 kg
[~2021-03-07 11:07] MED LIST changes: +ACET-1600 PO; +CITA20TA6 PO; +FLUT9.9S NS; +METH-639 PO; +ROPI0.254 PO; +SIMV40TA20 PO
[2021-03-07 11:38] VITALS: BP 157/90
[2021-03-07] MEDS ORDERED: LACTATED RINGERS 1,000 ML IV SCH (12:00)
[2021-03-07] MEDS ORDERED: CHLORHEXIDINE 15 ML UDC PO ONE (12:00)
[2021-03-07] MEDS ORDERED: OMNIPAQUE 350 MG/ML, 50 ML BOTTLE ONE (12:13)
[2021-03-07] MEDS ORDERED: DEXAMETHASONE 4 MG/ML, 5ML ONE (12:54)
[2021-03-07] MEDS ORDERED: FENTANYL PF 100 MCG/2ML ONE (12:54)
[2021-03-07] MEDS ORDERED: PROPOFOL 10 MG/ML, 20ML ONE (12:56)
[2021-03-07] MEDS ORDERED: PROPOFOL 50 ML ONE (13:17)
[2021-03-07] MEDS ORDERED: DIAZEPAM 5 MG/ML, 2ML IVPush PRN (14:00)
[2021-03-07] MEDS ORDERED: ONDANSETRON 2MG/ML, 2ML IVPush PRN (14:00)
[2021-03-07] MEDS ORDERED: EPHEDRINE 50 MG/ML, 1ML IVPush PRN (14:00)
[2021-03-07] MEDS ORDERED: hydrALAzine 20 MG/ML, 1ML IV PRN (14:00)
[2021-03-07] MEDS ORDERED: MIDAZOLAM 1 MG/ML, 2ML IV PRN (14:00)
[2021-03-07] MEDS ORDERED: FENTANYL PF 100 MCG/2ML IV PRN (14:00)
[2021-03-07] MEDS ORDERED: ALBUTEROL SULFATE 2.5 MG/3 ML NPPB PRN (14:00)
[2021-03-07] MEDS ORDERED: LABETALOL 5MG/ML, 20ML IV PRN (14:00)
[2021-03-07] MEDS ORDERED: OXYcodone 5 MG/5 ML ORAL.SOL UDC PO PRN (14:00)
[2021-03-07] MEDS ORDERED: HYDROmorphone 1 MG/ML, 1ML INJ IVPush PRN (14:00)
[2021-03-07] MEDS ORDERED: PROMETHAZINE 25 MG/ML, 1ML IVPush PRN (14:00)
[2021-03-07] MEDS ORDERED: MEPERIDINE/PF 25MG/0.5ML IVPush PRN (14:00)
[2021-03-07] MEDS ORDERED: PROMETHAZINE 12.5 MG SUPP PR PRN (14:00)
[2021-03-07] MEDS ORDERED: DIPHENHYDRAMINE 50 MG/ML, 1ML IVPush PRN ×2 (14:00)
== END 2021-03-07 14:52 | disposition home or self-care (01) ==
LOC: OUT 11:07
PROVIDERS: ATTEND Internal Medicine Gastroenterology
DX: K86.89 Other specified diseases of pancreas (principal); K29.50 Unspecified chronic gastritis without bleeding; N28.1 Cyst of kidney, acquired; I12.0 Hypertensive chronic kidney disease with stage 5 chronic kidney disease or end stage renal disease; N18.6 End stage renal disease; E78.5 Hyperlipidemia, unspecified; G47.33 Obstructive sleep apnea (adult) (pediatric); Z20.822 Contact with and (suspected) exposure to COVID-19; Z79.01 Long term (current) use of anticoagulants; Z79.899 Other long term (current) drug therapy; Z88.8 Allergy status to other drugs, medicaments and biological substances; Z91.041 Radiographic dye allergy status; Z99.2 Dependence on renal dialysis
CPT/HCPCS: 36415; 43239; 43259; 80053; 84132; 85025; 85610; 85730; 88305; 93005; J1100; J2704; J3010; Q9967; U0003; U0005